=== PATIENT | male | born 1960 | race Caucasian/White ===

== ENCOUNTER 2018-12-08 18:25 | Observation (INO) | payer MEDICAID, OTHER ==
[~2018-12-08] VITALS: Ht 165.1 cm; Wt 66.7 kg
[~2018-12-08 18:25] MED LIST: metroNIDAZOLE 500 MG/100 ML IVPB (PRE-MIX) IV SCH
--- OUTSIDE RECORDS SUMMARY | 2018-12-08 18:31 | XMS REPORT ---
Author Author CLEOPATRA CARRASCO [facility] Address [address] [place] [address] Phone Unavailable Care Team Providers Care Engagement Manager Name Role Phone CLEOPATRA CARRASCO Unavailable Unavailable PROBLEMS Type Condition ICD9-CM Code ZSU75-PL Code Onset Dates Condition Status SNOMED Code Problem Hypercholesteremia E78.0 Active 32376559 Problem Right hip pain M25.551 Active 776074208640784 Problem Hypertriglyceridemia E78.1 Active 257404066 Problem HTN (hypertension) I10 Active 33175401 Problem COPD (chronic obstructive pulmonary disease) J44.9 Active 96927623 Problem Other chronic pain G89.29 Active 09240755 Problem Lumbago M54.5 Active 809340145 ALLERGIES No Information ENCOUNTERS Encounter Location Date Diagnosis [facility] [address] [id number] Nov, Dental examination Z01.20 [facility] [id number] [place] [id number] Nov, Dental examination Z01.20 [facility] [id number] [place] [address] Nov, Lumbar neuritis M54.16 and Right hip pain M25.551 [facility] [id number] [place] [address] October, Lumbar neuritis M54.16 and Hypertriglyceridemia E78.1 [facility] [id number] [place] [address] October, Lumbar neuritis M54.16 ; Pain in unspecified hip M25.559 ; Other chronic pain G89.29 ; HTN (hypertension) I10 ; Hypercholesteremia E78.0 and COPD (chronic obstructive pulmonary disease) J44.9 [facility] [id number] [place] [address] Feb, [facility] [address] [address] Jan, [facility] [address], [place] [address] Jan, [facility] [address], [place] [address] Dec, HTN (hypertension) I10 ; Lumbago M54.5 ; Hypercholesteremia E78.0 and COPD (chronic obstructive pulmonary disease) J44.9 [facility] [address], [place] [address] Nov, Lumbago M54.5 [facility] [address], [place] [address] October, Lumbago M54.5 [facility] [id number] [address] Sep, [facility] [address], [place] [address] Aug, Lumbago M54.5 ; HTN (hypertension) I10 ; Hypercholesteremia E78.0 and COPD (chronic obstructive pulmonary disease) J44.9 [facility] [address], [place] [address] Jul, [facility] [address], [place] [address] Jun, [facility] [id number] [address] May, HTN (hypertension) I10 ; Hypercholesteremia E78.0 ; Lumbago M54.5 and COPD (chronic obstructive pulmonary disease) J44.9 [facility] [address], [place] [address] May, [facility] [id number] [place] [address] [place] [address] May, [facility] [address] [facility] [id number] [address] May, HTN (hypertension) I10 ; Hypercholesteremia E78.0 ; Lumbago M54.5 and COPD (chronic obstructive pulmonary disease) J44.9 IMMUNIZATIONS No Known Immunizations SOCIAL HISTORY Never Assessed REASON FOR VISIT Adult Outreach [facility] PLAN OF CARE Activity Details Follow Up prn Reason:consult/reline or new FUD VITAL SIGNS MEDICATIONS Medication Instructions Dosage Frequency Start Date End Date Duration Status Tramadol HCl 50MG 1 tablet as needed 8h Not-Taking ProAir HFA 108 (90 Base) MCG/ACT Inhalation every 4 hrs 2 puffs as needed 4h May, Not-Taking Gabapentin 300 MG Orally Three times a day 1 capsule 8h 16 May, 2015 Active Lisinopril 40 mg Orally Once a day 1 tablet 24h May, Active Naproxen 500 mg Orally Twice a day 1 tablet 12h Nov, Dec, 30 day(s) Active Simvastatin 40 MG Orally Once a day 1 tablet in the evening 24h May, Active RESULTS No Results PROCEDURES Procedure Date Ordered Result Body Site SCREENING OF A PATIENT December 01, 2017 Billing Notes on claim December 01, 2017 INSTRUCTIONS MEDICATIONS ADMINISTERED No Known Medications MEDICAL (GENERAL) HISTORY Type Description Date Medical History hypertension Medical History chronic back and leg pain Medical History hyperlipidemia Medical History COPD Medical History Patient in treatment at [facility] ej Surgical History tonsillectomy Hospitalization History surgery
--- OUTSIDE RECORDS SUMMARY | 2018-12-08 18:31 | XMS REPORT ---
Author Author LEO WOODRUFF [facility] Address Unknown Care Team Providers Care Table Top Tile Setter Name Role Phone LEO WOODRUFF Unavailable PROBLEMS Type Condition ICD9-CM Code HRK08-NM Code Onset Dates Condition Status SNOMED Code Problem Hypercholesteremia E78.0 Active 36902915 Problem Right hip pain M25.551 Active 671928960873806 Problem Hypertriglyceridemia E78.1 Active 137838720 Problem HTN (hypertension) I10 Active 46881145 Problem COPD (chronic obstructive pulmonary disease) J44.9 Active 29665065 Problem Other chronic pain G89.29 Active 67743455 Problem Lumbago M54.5 Active 620753226 ALLERGIES No Known Allergies ENCOUNTERS Encounter Location Date Diagnosis [facility] [id number] [place] [id number] Nov, Dental examination Z01.20 [facility] [address] [id number] Nov, Dental examination Z01.20 [facility] [id number] [place] [address] Nov, Lumbar neuritis M54.16 and Right hip pain M25.551 [facility] [id number] [place] [address] October, Lumbar neuritis M54.16 and Hypertriglyceridemia E78.1 [facility] [address] [address] October, Lumbar neuritis M54.16 ; Pain in unspecified hip M25.559 ; Other chronic pain G89.29 ; HTN (hypertension) I10 ; Hypercholesteremia E78.0 and COPD (chronic obstructive pulmonary disease) J44.9 [facility] [id number] [place] [address] Feb, [facility] [address], [place] [address] Jan, [facility] [address], [place] [address] Jan, [facility] [address] [address] Dec, HTN (hypertension) I10 ; Lumbago M54.5 ; Hypercholesteremia E78.0 and COPD (chronic obstructive pulmonary disease) J44.9 [facility] [address], [place] [address] Nov, Lumbago M54.5 [facility] [address], [place] [address] October, Lumbago M54.5 [facility] [address], [place] [address] Sep, [facility] [address] [address] Aug, Lumbago M54.5 ; HTN (hypertension) I10 ; Hypercholesteremia E78.0 and COPD (chronic obstructive pulmonary disease) J44.9 [facility] [address], [place] [address] Jul, [facility] [address], [place] [address] Jun, [facility] [id number] [address] May, HTN (hypertension) I10 ; Hypercholesteremia E78.0 ; Lumbago M54.5 and COPD (chronic obstructive pulmonary disease) J44.9 [facility] [address], [place] [address] May, [facility] [id number] [address] May, [facility] [address] [facility] [id number] [address] May, HTN (hypertension) I10 ; Hypercholesteremia E78.0 ; Lumbago M54.5 and COPD (chronic obstructive pulmonary disease) J44.9 IMMUNIZATIONS No Known Immunizations SOCIAL HISTORY Never Assessed REASON FOR VISIT [facility] PLAN OF CARE Activity Details Follow Up prn Reason:MARSHAL VITAL SIGNS MEDICATIONS Medication Instructions Dosage Frequency Start Date End Date Duration Status Lisinopril 40 mg Orally Once a day 1 tablet 24h May, Active Tramadol HCl 50MG 1 tablet as needed 8h Not-Taking Simvastatin 40 MG Orally Once a day 1 tablet in the evening 24h May, Active Gabapentin 300 MG Orally Three times a day 1 capsule 8h May, Active ProAir HFA 108 (90 Base) MCG/ACT Inhalation every 4 hrs 2 puffs as needed 4h May, Not-Taking Naproxen 500 mg Orally Twice a day 1 tablet 12h Nov, Dec, 30 day(s) Active RESULTS No Results PROCEDURES Procedure Date Ordered Result Body Site PANORAMIC FILM SEE ALSO CODE 15078 December 03, 2017 TISSUE CONDITIONING MAXILLARY December 03, 2017 Billing Notes on claim December 03, 2017 Dental no charge December 03, 2017 INSTRUCTIONS MEDICATIONS ADMINISTERED No Known Medications MEDICAL (GENERAL) HISTORY Type Description Date Medical History hypertension Medical History chronic back and leg pain Medical History hyperlipidemia Medical History COPD Medical History Patient in treatment at [facility] [place] [facility] Surgical History tonsillectomy Hospitalization History surgery
--- OUTSIDE RECORDS SUMMARY | 2018-12-08 18:31 | XMS REPORT ---
Author Author RUBI BARFIELD Organization [facility] Address [address] [place] [address] Care Team Providers Care Collet Making Machine Operator Name Role Phone RUBI BARFIELD Unavailable PROBLEMS Type Condition ICD9-CM Code HSC32-CN Code Onset Dates Condition Status SNOMED Code Problem Hypercholesteremia E78.0 Active 77249753 Problem Right hip pain M25.551 Active 367360791276131 Problem Hypertriglyceridemia E78.1 Active 675754375 Problem HTN (hypertension) I10 Active 23816112 Problem COPD (chronic obstructive pulmonary disease) J44.9 Active 58558882 Problem Other chronic pain G89.29 Active 01382452 Problem Lumbago M54.5 Active 312930486 ALLERGIES No Information ENCOUNTERS Encounter Location Date Diagnosis [facility] [id number] [place] [id number] Nov, Dental examination Z01.20 [facility] [address] [id number] Nov, Dental examination Z01.20 [facility] [id number] [place] [address] Nov, Lumbar neuritis M54.16 and Right hip pain M25.551 [facility] [id number] [place] [address] October, Lumbar neuritis M54.16 and Hypertriglyceridemia E78.1 [facility] [address] [address] October, Lumbar neuritis M54.16 ; Pain in unspecified hip M25.559 ; Other chronic pain G89.29 ; HTN (hypertension) I10 ; Hypercholesteremia E78.0 and COPD (chronic obstructive pulmonary disease) J44.9 [facility] [id number] [address] Feb, [facility] [address], [place] [address] Jan, [facility] [address], [place] [address] Jan, [facility] [id number] [place] [address] Dec, HTN (hypertension) I10 ; Lumbago M54.5 ; Hypercholesteremia E78.0 and COPD (chronic obstructive pulmonary disease) J44.9 [facility] [id number] [place] [address] Nov, Lumbago M54.5 [facility] [address], [place] [address] October, Lumbago M54.5 [facility] [address], [place] [address] Sep, [facility] [address], [place] [address] Aug, Lumbago M54.5 ; HTN (hypertension) I10 ; Hypercholesteremia E78.0 and COPD (chronic obstructive pulmonary disease) J44.9 [facility] [address], [place] [address] Jul, [facility] [address], [place] [address] Jun, [facility] [address], [place] [address] May, HTN (hypertension) I10 ; Hypercholesteremia E78.0 ; Lumbago M54.5 and COPD (chronic obstructive pulmonary disease) J44.9 [facility] [address], [place] [address] May, [facility] [address] [facility] [id number] [place] [address] May, [facility] [address] [facility] [id number] [address] May, HTN (hypertension) I10 ; Hypercholesteremia E78.0 ; Lumbago M54.5 and COPD (chronic obstructive pulmonary disease) J44.9 IMMUNIZATIONS No Known Immunizations SOCIAL HISTORY Never Assessed REASON FOR VISIT Lab results PLAN OF CARE VITAL SIGNS MEDICATIONS Medication Instructions Dosage Frequency Start Date End Date Duration Status Simvastatin 40 MG Orally Once a day 1 tablet in the evening 24h 30 May, 2015 Active RESULTS No Results PROCEDURES No Known procedures INSTRUCTIONS MEDICATIONS ADMINISTERED No Known Medications MEDICAL (GENERAL) HISTORY Type Description Date Medical History hypertension Medical History chronic back and leg pain Medical History hyperlipidemia Medical History COPD Medical History Patient in treatment at [facility] [facility] Surgical History tonsillectomy Hospitalization History surgery
--- OUTSIDE RECORDS SUMMARY | 2018-12-08 18:31 | XMS REPORT ---
Author RJ Arenas [facility] eClinicalWorks Address Unknown Phone Unavailable Care Team Providers Care Stacker Name Role Phone RJ MADDEN CP Unavailable Allergies, Adverse Reactions, Alerts Substance Reaction Event Type N.K.D.A. Info Not Available Non Drug Allergy Problems Problem Type Condition Code Onset Dates Condition Status Assessment COPD (chronic obstructive pulmonary disease) J44.9 Active Problem Hypercholesteremia E78.0 Active Problem Lumbago M54.5 Active Problem HTN (hypertension) I10 Active Assessment Hypercholesteremia E78.0 Active Assessment Lumbago M54.5 Active Problem COPD (chronic obstructive pulmonary disease) J44.9 Active Assessment HTN (hypertension) I10 Active Medications Medication Code System Code Instructions Start Date End Date Status Dosage Simvastatin [facility] [address]-30 20 MG Orally Once a day Jun 06, 2015 1 tablet in the evening ProAir HFA [facility] [address]-21 108 (90 Base) MCG/ACT Inhalation every 4 hrs Jun 06, 2015 2 puffs as needed Lisinopril [facility] [address]-75 40 MG Orally Once a day Jun 06, 2015 1 tablet Gabapentin [facility] [address]-31 300 MG Orally 2 times a day May 23, 2015 1 capsule Procedures Procedure Coding System Code Date Office Visit, Est Pt., Level 3 CPT-4 63378 Jun 06, 2015 Vital Signs Date/Time: Jun 06, 2015 Temperature 97.8 F Weight 156.6 lbs Height 66 in BMI 25.27 Index Blood Pressure Diastolic 108 mmHg Blood Pressure Systolic 184 mmHg Cardiac Monitoring Heart Rate 100 bpm Results No Known Results Summary Purpose eClinicalWorks Submission
--- OUTSIDE RECORDS SUMMARY | 2018-12-08 18:31 | XMS REPORT ---
Author Author HARRY FALL [facility] Address [address] [place] [address] Care Team Providers Care Director Career Services Name Role Phone HARRY FALL Unavailable PROBLEMS Type Condition ICD9-CM Code LPH04-LK Code Onset Dates Condition Status SNOMED Code Problem Hypercholesteremia E78.0 Active 61792501 Problem Right hip pain M25.551 Active 398294823659747 Problem Hypertriglyceridemia E78.1 Active 384262087 Problem HTN (hypertension) I10 Active 53075065 Problem COPD (chronic obstructive pulmonary disease) J44.9 Active 70122626 Problem Other chronic pain G89.29 Active 35167995 Problem Lumbago M54.5 Active 769859520 ALLERGIES No Known Allergies ENCOUNTERS Encounter Location Date Diagnosis [facility] [address] [id number] Nov, Dental examination Z01.20 [facility] [address] [id number] Nov, Dental examination Z01.20 [facility] [address] [address] Nov, Lumbar neuritis M54.16 and Right hip pain M25.551 [facility] [address] [address] October, Lumbar neuritis M54.16 and Hypertriglyceridemia E78.1 [facility] [address] [address] October, Lumbar neuritis M54.16 ; Pain in unspecified hip M25.559 ; Other chronic pain G89.29 ; HTN (hypertension) I10 ; Hypercholesteremia E78.0 and COPD (chronic obstructive pulmonary disease) J44.9 [facility] [address] [address] Feb, [facility] [id number] [place] [address] Jan, [facility] [address] [address] Jan, [facility] [id number] [place] [address] Dec, HTN (hypertension) I10 ; Lumbago M54.5 ; Hypercholesteremia E78.0 and COPD (chronic obstructive pulmonary disease) J44.9 [facility] [id number] [place] [address] Nov, Lumbago M54.5 [facility] [address] [address] October, Lumbago M54.5 [facility] [address] [address] Sep, [facility] [address] [place] [address] Aug, Lumbago M54.5 ; HTN (hypertension) I10 ; Hypercholesteremia E78.0 and COPD (chronic obstructive pulmonary disease) J44.9 [facility] [address] [address] Jul, [facility] [address] [address] Jun, [facility] [address] [place] [address] May, HTN (hypertension) I10 ; Hypercholesteremia E78.0 ; Lumbago M54.5 and COPD (chronic obstructive pulmonary disease) J44.9 [facility] [address] [address] May, [facility] [address] [facility] [id number] [place] [address] May, [facility] [address] [facility] [id number] [address] May, HTN (hypertension) I10 ; Hypercholesteremia E78.0 ; Lumbago M54.5 and COPD (chronic obstructive pulmonary disease) J44.9 IMMUNIZATIONS No Known Immunizations SOCIAL HISTORY Never Assessed REASON FOR VISIT Hip Pain, pain in both legs has pain in lower back-HENRRY bermudez, pt. wants a refer ral to ortho at [facility] PLAN OF CARE Activity Details Follow Up prn Reason: VITAL SIGNS Height 66 in 2017-11-30 Weight 170.6 lbs 2017-11-30 Temperature 98.2 degrees Fahrenheit 2017-11-30 Heart Rate 80 bpm 2017-11-30 Respiratory Rate 20 2017-11-30 BMI 27.53 kg/m2 2017-11-30 Blood pressure systolic 160 mmHg 2017-11-30 Blood pressure diastolic 102 mmHg 2017-11-30 MEDICATIONS Medication Instructions Dosage Frequency Start Date End Date Duration Status Gabapentin 300 MG Orally Three times a day 1 capsule 8h May, Active Simvastatin 40 MG Orally Once a day 1 tablet in the evening 24h May, Active Lisinopril 40 mg Orally Once a day 1 tablet 24h May, Active Tramadol HCl 50MG 1 tablet as needed 8h Not-Taking ProAir HFA 108 (90 Base) MCG/ACT Inhalation every 4 hrs 2 puffs as needed 4h May, Active Naproxen 500 mg Orally Twice a day 1 tablet 12h Nov, Dec, 30 day(s) Active RESULTS No Results PROCEDURES No Known procedures INSTRUCTIONS MEDICATIONS ADMINISTERED No Known Medications MEDICAL (GENERAL) HISTORY Type Description Date Medical History hypertension Medical History chronic back and leg pain Medical History hyperlipidemia Medical History COPD Medical History Patient in treatment at [facility] Surgical History tonsillectomy Hospitalization History surgery
--- OUTSIDE RECORDS SUMMARY | 2018-12-08 18:31 | XMS REPORT ---
Author RJ Arenas [facility] eClinicalWorks Address Unknown Phone Unavailable Care Team Providers Care Claims Configuration Analyst Name Role Phone RJ MADDEN Unavailable Allergies No Known Allergies Problems Problem Type Condition Code Onset Dates Condition Status Problem Hypercholesteremia E78.0 Active Problem Lumbago M54.5 Active Problem HTN (hypertension) I10 Active Problem COPD (chronic obstructive pulmonary disease) J44.9 Active Medications Medication Code System Code Instructions Start Date End Date Status Dosage Pravastatin [facility] 2001 [address]-71 10 MG Orally Once a day May 24, 2015 1 tablet Results No Known Results Summary Purpose eClinicalWorks Submission
--- OUTSIDE RECORDS SUMMARY | 2018-12-08 18:31 | XMS REPORT ---
Author Author RUBI BARFIELD Organization [facility] Address [address] [place] [address] Care Team Providers Care Windows Application Developer Name Role Phone RUBI BARFIELD Unavailable PROBLEMS Type Condition ICD9-CM Code BZC80-HG Code Onset Dates Condition Status SNOMED Code Problem Hypercholesteremia E78.0 Active 90002891 Problem Right hip pain M25.551 Active 633013089389305 Problem Hypertriglyceridemia E78.1 Active 207627219 Problem HTN (hypertension) I10 Active 57535195 Problem COPD (chronic obstructive pulmonary disease) J44.9 Active 50209581 Problem Other chronic pain G89.29 Active 84436539 Problem Lumbago M54.5 Active 149689142 ALLERGIES No Known Allergies ENCOUNTERS Encounter Location Date Diagnosis [facility] [address] [id number] Nov, Dental examination Z01.20 [facility] [address] [id number] Nov, Dental examination Z01.20 [facility] [address] [address] Nov, Lumbar neuritis M54.16 and Right hip pain M25.551 [facility] [id number] [place] [address] October, Lumbar neuritis M54.16 and Hypertriglyceridemia E78.1 [facility] [address] [address] October, Lumbar neuritis M54.16 ; Pain in unspecified hip M25.559 ; Other chronic pain G89.29 ; HTN (hypertension) I10 ; Hypercholesteremia E78.0 and COPD (chronic obstructive pulmonary disease) J44.9 [facility] [address], [place] [address] Feb, [facility] [address], [place] [address] Jan, [facility] [address], [place] [address] Jan, [facility] [id number] [place] [address] Dec, HTN (hypertension) I10 ; Lumbago M54.5 ; Hypercholesteremia E78.0 and COPD (chronic obstructive pulmonary disease) J44.9 [facility] [id number] [place] [address] Nov, Lumbago M54.5 [facility] [address], [place] [address] October, Lumbago M54.5 [facility] [address], [place] [address] Sep, [facility] [address], [place] [address] Aug, Lumbago M54.5 ; HTN (hypertension) I10 ; Hypercholesteremia E78.0 and COPD (chronic obstructive pulmonary disease) J44.9 [facility] [address], [place] [address] Jul, [facility] [address] [place] [address] Jun, [facility] [address] [place] [address] May, HTN (hypertension) I10 ; Hypercholesteremia E78.0 ; Lumbago M54.5 and COPD (chronic obstructive pulmonary disease) J44.9 [facility] [address] [place] [address] May, [facility] [address] [facility] [id number] [place] [address] May, [facility] [address] [facility] [id number] [address] May, HTN (hypertension) I10 ; Hypercholesteremia E78.0 ; Lumbago M54.5 and COPD (chronic obstructive pulmonary disease) J44.9 IMMUNIZATIONS No Known Immunizations SOCIAL HISTORY Never Assessed REASON FOR VISIT Transition of Care, Back and Hip pain PLAN OF CARE VITAL SIGNS Height 66 in 2017-10-22 Weight 161.5 lbs 2017-10-22 Temperature 99 degrees Fahrenheit 2017-10-22 Heart Rate 100 bpm 2017-10-22 Respiratory Rate 18 2017-10-22 Oximetry on room air:98 % 2017-10-22 BMI 26.06 kg/m2 2017-10-22 Blood pressure systolic 160 mmHg 2017-10-22 Blood pressure diastolic 98 mmHg 2017-10-22 MEDICATIONS Medication Instructions Dosage Frequency Start Date End Date Duration Status Tramadol HCl 50MG 1 tablet as needed 8h Active Simvastatin 20 mg Orally Once a day 1 tablet in the evening 24h May, Active Lisinopril 40 mg Orally Once a day 1 tablet 24h May, Active Gabapentin 300 MG Orally Three times a day 1 capsule 8h May, Active Nabumetone 750 MG Orally Twice a day 1 tablet 12h Aug, Active ProAir HFA 108 (90 Base) MCG/ACT Inhalation every 4 hrs 2 puffs as needed 4h May, Active RESULTS No Results PROCEDURES Procedure Date Ordered Result Body Site LAB NOT BILLED BY [facility] October 22, 2017 RENETTA REYNOLDS* October 22, 2017 INSTRUCTIONS MEDICATIONS ADMINISTERED No Known Medications MEDICAL (GENERAL) HISTORY Type Description Date Medical History hypertension Medical History chronic back and leg pain Medical History hyperlipidemia Medical History COPD Medical History Patient in treatment at [facility] Surgical History tonsillectomy Hospitalization History surgery
--- OUTSIDE RECORDS SUMMARY | 2018-12-08 18:32 | XMS REPORT ---
Author RJ Arenas [facility] eClinicalWorks Address Unknown Phone Unavailable Care Team Providers Care Typing Element Machine Operator Name Role Phone RJ MADDEN CP Unavailable Allergies No Known Allergies Problems Problem Type Condition Code Onset Dates Condition Status Problem Hypercholesteremia E78.0 Active Problem Lumbago M54.5 Active Problem HTN (hypertension) I10 Active Problem COPD (chronic obstructive pulmonary disease) J44.9 Active Medications Medication Code System Code Instructions Start Date End Date Status Dosage [facility] [address]-98 50 mg Orally 2 times a day prn August 20, 2015 1 tablet as needed Results No Known Results Summary Purpose eClinicalWorks Submission
--- OUTSIDE RECORDS SUMMARY | 2018-12-08 18:32 | XMS REPORT ---
Author RJ Arenas Organization [employer] Address Unknown Phone Unavailable Care Team Providers Care Associate Business Analyst Name Role Phone RJ MADDEN CP Unavailable Allergies No Known Allergies Problems Problem Type Condition Code Onset Dates Condition Status Problem Hypercholesteremia E78.0 Active Problem Lumbago M54.5 Active Problem HTN (hypertension) I10 Active Problem COPD (chronic obstructive pulmonary disease) J44.9 Active Medications No Known Medications Results No Known Results Summary Purpose eClinicalWorks Submission
--- OUTSIDE RECORDS SUMMARY | 2018-12-08 18:32 | XMS REPORT ---
Author RJ Arenas Organization [employer] Address Unknown Phone Unavailable Care Team Providers Care Director Of Infection Control Name Role Phone RJ MADDEN CP Unavailable Allergies No Known Allergies Problems Problem Type Condition Code Onset Dates Condition Status Problem Hypercholesteremia E78.0 Active Problem Lumbago M54.5 Active Problem HTN (hypertension) I10 Active Problem COPD (chronic obstructive pulmonary disease) J44.9 Active Medications No Known Medications Results No Known Results Summary Purpose eClinicalWorks Submission
--- OUTSIDE RECORDS SUMMARY | 2018-12-08 18:32 | XMS REPORT ---
Author RJ Arenas Organization e[employer] Address Unknown Phone Unavailable Care Team Providers Care Home Appliance Technician Name Role Phone RJ MADDEN CP Unavailable Allergies No Known Allergies Problems Problem Type Condition Code Onset Dates Condition Status Problem Hypercholesteremia E78.0 Active Problem Lumbago M54.5 Active Problem HTN (hypertension) I10 Active Problem COPD (chronic obstructive pulmonary disease) J44.9 Active Medications No Known Medications Results No Known Results Summary Purpose eClinicalWorks Submission
--- OUTSIDE RECORDS SUMMARY | 2018-12-08 18:32 | XMS REPORT ---
Author Author RJ MADDEN [facility] eClinicalWorks Address Unknown Phone Unavailable Care Team Providers Care Dental Floss Packer Name Role Phone RJ MADDEN CP Unavailable [...] Instructions Start Date End Date Status Dosage Gabapentin [facility] [address]-59 300 MG Orally 2 times a day May 23, 2015 1 capsule Ventolin HFA [facility] [address]-67 108 (90 Base) MCG/ACT Inhalation every 4 hrs prn May 23, 2015 2 puffs as needed Lisinopril [facility] [address]-84 20 MG Orally once a day May 23, 2015 1 tablet Procedures Procedure Coding System Code Date LIPID PANEL CPT-4 47055 May 23, 2015 X-RAY EXAM OF LOWER SPINE CPT-4 34303 May 23, 2015 COMPLETE CBC W/AUTO DIFF WBC CPT-4 88202 May 23, 2015 COMPREHEN METABOLIC PANEL CPT-4 66501 May 23, 2015 Office Visit, New Pt., Level 4 CPT-4 84494 May 23, 2015 VENIPUNCT, ROUTINE* CPT-4 00743 May 23, 2015 Vital Signs Date/Time: May 23, 2015 Temperature 97.9 F Weight 157.2 lbs Height 66 in BMI 25.37 Index Blood Pressure Diastolic 102 mmHg Blood Pressure Systolic 208 mmHg Cardiac Monitoring Heart Rate 96 bpm Results Name Result Date Reference Range Unit Abnormality Flag LIPID PANEL ----HDL Cholesterol 39 20150523 >39 mg/dL L ----VLDL Cholesterol Toney 51 11441502 5-40 mg/dL H ----LDL Cholesterol Calc 164 43285862 0-99 mg/dL H ----Cholesterol, Total 254 56290005 100-199 mg/dL H ----Triglycerides 257 62770065 0-149 mg/dL H CMP ----Globulin, Total 3.7 87116971 1.5-4.5 g/dL ----eGFR If Africn Am 108 00955848 >59 mL/min/1.73 ----eGFR If NonAfricn Am 93 43129937 >59 mL/min/1.73 ----Albumin, Serum 4.8 33193118 3.5-5.5 g/dL ----Sodium, Serum 139 83386017 134-144 mmol/L ----Protein, Total, Serum 8.5 55707997 6.0-8.5 g/dL ----BUN/Creatinine Ratio 10 75073203 9-20 ----Calcium, Serum 9.5 39316378 8.7-10.2 mg/dL ----AST (SGOT) 33 28837244 0-40 IU/L ----Glucose, Serum 90 56283105 65-99 mg/dL ----Alkaline Phosphatase, S 117 10793280 39-117 IU/L ----Bilirubin, Total 0.6 57597025 0.0-1.2 mg/dL ----Creatinine, Serum 0.92 49992421 0.76-1.27 mg/dL ----A/G Ratio 1.3 20150523 1.1-2.5 ----BUN 9 20150523 6-24 mg/dL ----Carbon Dioxide, Total 24 88113864 18-29 mmol/L ----ALT (SGPT) 72 20399562 0-44 IU/L H ----Potassium, Serum 4.3 29886439 3.5-5.2 mmol/L ----Chloride, Serum 100 42773156 97-108 mmol/L ROUTINE VENIPUNCTURE CBC ----MCHC 33.9 21113630 31.5-35.7 g/dL ----MCH 31.4 26923086 26.6-33.0 pg ----Platelets 225 27563161 150-379 x10E3/uL ----RDW 12.8 82184897 12.3-15.4 % ----Immature Granulocytes 0 72760245 % ----Immature Grans (Abs) 0.0 15882127 0.0-0.1 x10E3/uL ----Lymphs 33 16866805 % ----Monocytes 7 27538221 % ----Neutrophils 58 68534264 % ----Neutrophils (Absolute) 5.6 57811977 1.4-7.0 x10E3/uL ----Hematocrit 50.7 53342251 37.5-51.0 % ----Lymphs (Absolute) 3.2 26660653 0.7-3.1 x10E3/uL H ----MCV 93 37556184 79-97 fL ----RBC 5.48 13669656 4.14-5.80 x10E6/uL ----Eos 2 31030673 % ----Basos 0 22204983 % ----Hemoglobin 17.2 71430204 12.6-17.7 g/dL ----Baso (Absolute) 0.0 63503856 0.0-0.2 x10E3/uL ----WBC 9.7 46907206 3.4-10.8 x10E3/uL ----Monocytes(Absolute) 0.7 61099631 0.1-0.9 x10E3/uL ----Eos (Absolute) 0.2 24754461 0.0-0.4 x10E3/uL Summary Purpose eClinicalWorks Submission
--- OUTSIDE RECORDS SUMMARY | 2018-12-08 18:32 | XMS REPORT | Continuity of Care Document ---
Author Organization Unknown Address Unknown Allergies There is no data. Medications There is no data. Problems There is no data. Procedures There is no data. Results Test Result Range LIPID PANEL - 10/22/17 11:34 CHOLESTEROL, TOTAL 201 mg/dL <200 HDL CHOLESTEROL 37 mg/dL >40 TRIGLYCERIDES 309 mg/dL <150 LDL-CHOLESTEROL 120 mg/dL (calc) NRG CHOL/HDLC RATIO 5.4 (calc) <5.0 NON HDL CHOLESTEROL 164 mg/dL (calc) <130 Encounters ACCT No. Visit Date/Time Discharge Status Pt. Type Provider Facility Loc./Unit Complaint [id number] 10/17/2015 09:46:00 10/17/2015 23:59:59 CLS Outpatient BIRGIT BARRY MD (DDU) [facility] RT [id number] 10/11/2015 10:00:00 10/11/2015 23:59:59 CLS Preadmit Birgit Barry MD [facility] KCUL COPD [id number] 12/03/2017 14:00:00 12/03/2017 23:59:59 CLS Outpatient RUBI BARFIELD APRN [facility] [id number] 10/22/2017 11:00:00 Document Registration
[2018-12-08] MEDS ORDERED: ONDANSETRON 4 MG/2 ML (SDV) Z0FRAN IVP STA (18:38)
[2018-12-08] MEDS ORDERED: fentaNYL INJECTION 100 MCG/2 ML AMP IVP STA (18:38)
[2018-12-08] MEDS ORDERED: PANTOPRAZOLE 40 MG (PROTONIX) VIAL IV STA (18:39)
--- NOTE | 2018-12-08 18:42 | ED Abdominal Pain ---
General Chief Complaint: Abdominal/GI Problems Stated Complaint: ABD PAIN Nursing Triage Note: Has abdominal pain that started approximately 1 hour ago accompanied by nausea. Is currently rating pain at 4/10. States has never had pain like this before. Denies urinary issues or constipation. Is tender to palpation. Sepsis Screen: No Definite Risk Source of Information: Patient, EMS History of Present Illness Date Seen by Provider: Dec 08, 2018 Time Seen by Provider: 18:30 Initial Comments 58-year-old male presenting with complaints of abdominal pain with nausea. He states that this came on suddenly for him and is diffuse. It is worse in the epigastric and periumbilical area. He has pain that comes and goes in intensity. He feels that is worse with certain movements and with palpation. He denies any fever or chills. He did have similar pain a year ago with infectious colitis. He has had no change in his bowel or bladder habits. he denies eating anything differently. He has had nausea with dry heaves. Allergies and Home Medications Allergies Coded Allergies: No Known Drug Allergies (Unverified , 12/08/18) Home Medications Albuterol Sulfate 6.7 Gm Hfa.aer.ad, 2 PUFF INH Q4H PRN for WHEEZING, (Reported) Amlodipine Besylate 10 Mg Tablet, 10 MG PO DAILY, (Reported) Ciprofloxacin/Ciprofloxa HCl 500 Mg Tbmp.24hr, 500 MG PO BID Prescribed by: RENETTA LAM on 12/09/18 114 Diclofenac Sodium 75 Mg Tablet.dr, 75 MG PO BID, (Reported) Hydrocodone Bit/Acetaminophen 1 Ea Tablet, 1 EACH PO Q4H PRN for PAIN-MODERATE Prescribed by: RENETTA LAM on 12/09/18 1142 Lovastatin 20 Mg Tablet, 20 MG PO DAILY, (Reported) Metoprolol Succinate 25 Mg Tab.er.24h, 25 MG PO DAILY, (Reported) Metronidazole 500 Mg Tablet, 500 MG PO BID Prescribed by: RENETTA LAM on 12/09/18 1142 Quetiapine Fumarate 25 Mg Tablet, 1-2 TAB PO HS, (Reported) Patient Home Medication List Home Medication List Reviewed: Yes Review of Systems Review of Systems Constitutional: see HPI; No chills, No fever EENTM: No Symptoms Reported Respiratory: No Symptoms Reported Cardiovascular: No Symptoms Reported Gastrointestinal: See HPI; Denies Constipated, Denies Diarrhea Genitourinary: Denies Hematuria, Denies Pain, Denies Urgency Musculoskeletal: no symptoms reported Skin: no symptoms reported Psychiatric/Neurological: Denies Headache, Denies Numbness Past Ryntsht-Ttqaqk-Bspzkm Hx Past Med/Social Hx: Reviewed Nursing Past Med/Soc Hx Patient Social History Alcohol Use: Denies Use Recreational Drug Use: No Smoking Status: Current Someday Smoker 2nd Hand Smoke Exposure: Yes Recent Foreign Travel: No Contact w/Someone Who Travel: No Recent Infectious Disease Expo: No Recent Hopitalizations: No Physical Abuse: No Sexual Abuse: No Mistreated: No Fear: No Seasonal Allergies Seasonal Allergies: No Past Medical History Surgeries: No Respiratory: Yes COPD Cardiac: Yes Hypertension Neurological: No Genitourinary: Yes Prostate Problems Gastrointestinal: No Musculoskeletal: No Endocrine: No HEENT: No Cancer: No Psychosocial: No Integumentary: No Blood Disorders: No Physical Exam Vital Signs Vital Signs - First Documented 12/08/18 18:31 Temp 98.0 Pulse 97 Resp 18 B/P (MAP) 104/86 (92) Pulse Ox 99 Capillary Refill : Less Than 3 Seconds Height/Weight/BMI Height: 5'5.00" Weight: 140lbs. oz. 63.079478ci; BMI Method:Stated General Appearance: WD/WN, moderate distress (complaining of severe abdominal - pain) HEENT: PERRL/EOMI, pharynx normal Neck: supple, normal inspection Respiratory: chest non-tender, lungs clear, normal breath sounds Cardiovascular: normal peripheral pulses, regular rate, rhythm Gastrointestinal: soft, no pulsatile mass, abnormal bowel sounds (hypoactive), guarding; No rebound; tenderness (diffusely tender to palpation); No mass Rectal: deferred Extremities: normal range of motion, non-tender Back: normal inspection, no CVA tenderness Neurologic/Psychiatric: alert, oriented x 3 Skin: normal color, warm/dry Progress/Results/Core Measures Results/Orders Lab Results Laboratory Tests Test 12/08/18 18:35 Range/Units White Blood Count 13.3 H 4.3-11.0 10^3/uL Red Blood Count 4.68 4.35-5.85 10^6/uL Hemoglobin 14.5 13.3-17.7 G/DL Hematocrit 43 40-54 % Mean Corpuscular Volume 91 80-99 FL Mean Corpuscular Hemoglobin 31 25-34 PG Mean Corpuscular Hemoglobin Concent 34 32-36 G/DL Red Cell Distribution Width 13.2 10.0-14.5 % Platelet Count 245 130-400 10^3/uL Mean Platelet Volume 10.1 7.4-10.4 FL Neutrophils (%) (Auto) 61 42-75 % Lymphocytes (%) (Auto) 27 12-44 % Monocytes (%) (Auto) 7 0-12 % Eosinophils (%) (Auto) 4 0-10 % Basophils (%) (Auto) 1 0-10 % Neutrophils # (Auto) 8.1 H 1.8-7.8 X 10^3 Lymphocytes # (Auto) 3.6 1.0-4.0 X 10^3 Monocytes # (Auto) 0.9 0.0-1.0 X 10^3 Eosinophils # (Auto) 0.6 H 0.0-0.3 10^3/uL Basophils # (Auto) 0.1 0.0-0.1 10^3/uL Sodium Level 138 135-145 MMOL/L Potassium Level 4.8 3.6-5.0 MMOL/L Chloride Level 103 98-107 MMOL/L Carbon Dioxide Level 20 L 21-32 MMOL/L Anion Gap 15 H 5-14 MMOL/L Blood Urea Nitrogen 32 H 7-18 MG/DL Creatinine 0.86 0.60-1.30 MG/DL Estimat Glomerular Filtration Rate > 60 BUN/Creatinine Ratio 37 Glucose Level 97 70-105 MG/DL Calcium Level 8.9 8.5-10.1 MG/DL Corrected Calcium 8.8 8.5-10.1 MG/DL Total Bilirubin 0.2 0.1-1.0 MG/DL Aspartate Amino Transf (AST/SGOT) 33 5-34 U/L Alanine Aminotransferase (ALT/SGPT) 69 H 0-55 U/L Alkaline Phosphatase 133 40-136 U/L Total Protein 7.7 6.4-8.2 GM/DL Albumin 4.1 3.2-4.5 GM/DL Lipase 70 8-78 U/L Serum Alcohol < 10 <10 MG/DL My Orders Orders - PRIYANKA JACKSON MD Comprehensive Metabolic Panel (12/08/18 18:38) Lipase (12/08/18 18:38) Ua Culture If Indicated (12/08/18 18:38) Ed Iv/Invasive Line Start (12/08/18 18:38) Cbc With Automated Diff (12/08/18 18:38) Ct Abdomen/Pelvis W (12/08/18 18:38) Ns Iv 1000 Ml (Sodium Chloride 0.9%) (12/08/18 18:45) Fentanyl Injection (Sublimaze Injection (12/08/18 18:38) Ondansetron Injection (Zofran Injectio (12/08/18 18:38) Drug Screen Stat (Urine) (12/08/18 18:39) Alcohol (12/08/18 18:39) Pantoprazole Injection (Protonix Injecti (12/08/18 18:39) Iohexol Injection (Omnipaque 350 Mg/Ml 1 (12/08/18 19:00) Received Contrast (Hold Metformin- Contr (12/08/18 19:00) Sodium Chloride Flush (Catheter Flush Sy (12/08/18 19:00) Ns (Ivpb) (Sodium Chloride 0.9% Ivpb Bag (12/08/18 19:00) Morphine Injection (Morphine Injection (12/08/18 19:04) Metoclopramide Injection (Reglan Injecti (12/08/18 19:06) Medications Given in ED Vital Signs/I&O 12/08/18 18:31 Temp 98.0 Pulse 97 Resp 18 B/P (MAP) 104/86 (92) Pulse Ox 99 12/09/18 00:00 Intake Total 1000 ml Balance 1000 ml Blood Pressure Mean: 92 Progress Progress Note #1: Progress Note with his complaint of severe abdominal pain and dry heaves as well has having difficulty getting comfortable will obtain labs and give IV fentanyl for pain, Zofran for nausea, IVF for hydration. Check CT scan of abdomen/pelvis with contrast to evaluate for colitis, diverticulitis, gallbladder, appendix or other pathology causing his symptoms. Progress Note #2: Progress Note pt was still intermittently crying out saying he was in pain so an additional dose of pain medicine was ordered and a dose of Reglan since he was still saying he was nauseated. Progress Note #3: Progress Note Labs show elevated WBC count to 13.3. Chemistry without significant abnormality to explain his pain. Lipase normal. CT scan does show findings for acute appendicitis without rupture or abscess. Will give Morphine to see if that does better than the fentanyl. IVF for hydration. Check with [facility] for bed availability and they do have a bed so paged Dr. Lam on for surgery and he accepted the patient. He requested Cipro and Flagyl for antibiotics and planned to do the surgery around 1030 am on December 09. Diagnostic Imaging Diagonstic Imaging: CT Plain Films/CT/US/NM/MRI: abdomen, pelvis Comments NAME: CLIFTON URBANO [facility] REC#: [id number] PT STATUS: REG ER : 1960 PHYSICIAN: PRIYANKA JACKSON MD ADMIT DATE: 12/08/18/ER FS Draft Date of Exam:12/08/18 CT ABDOMEN/PELVIS W PROCEDURE: CT abdomen and pelvis with contrast. TECHNIQUE: Multiple contiguous axial images were obtained through the abdomen and pelvis after administration of intravenous contrast. Auto Exposure Controls were utilized during the CT exam to meet ALARA standards for radiation dose reduction. INDICATION: Sudden onset of severe abdominal pain. No prior studies are available for comparison. Lung bases are clear. No discrete liver mass is seen apart from a tiny low density in the posterior right lobe measuring 7 mm. This is too small to characterize but may represent a cyst. There are stones within the gallbladder. No biliary duct dilatation is seen. The pancreas and spleen are unremarkable. No adrenal mass is seen. No definite renal calculi or hydronephrosis is seen. Aorta is heavily calcified but nonaneurysmal. Bowel loops are normal caliber. No obstruction is seen. There are inflammatory changes in the right lower quadrant. The appendix appears to be dilated and thick walled. The appendix extends towards the midline in the upper pelvis. There is periappendiceal inflammation and features are consistent with acute appendicitis. No abscess formation or bowel obstruction is seen. There is sigmoid diverticulosis without evidence of acute diverticulitis. No free fluid is seen. Bladder is unremarkable. 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 IMPRESSION: 1. Cholelithiasis. 2. Findings consistent with acute appendicitis. No abscess formation or bowel obstruction is seen. Dictated on workstation # [id number] Dict: 12/08/18 1944 Trans: 12/08/18 1950 HILARIO [id number] Interpreted by: JAYANT SNEED MD Electronically signed by: Departure Communication (Admissions) Time/Spoke to Admitting Phy: 20:38 Dr. Lam accepted pt for admit to him. He wanted antibiotics started and anticipated surgery in am at 1030 am by Lap Appy approach. Clear liquids until Midnight and then NPO. start on Cipro and Flagyl Impression Primary Impression: Acute appendicitis Qualified Codes: K35.30 - Acute appendicitis with localized peritonitis, without perforation or gangrene Disposition: ADMITTED INPATIENT Condition: Stable Admissions Decision to Admit Reason: Admit from ER (General) Decision to Admit/Date: Dec 08, 2018 Time/Decision to Admit Time: 20:38 Departure-Patient Inst. Referrals: NO,LOCAL PHYSICIAN (PCP/Family) Primary Care Physician Scripts Metronidazole (Flagyl) 500 Mg Tablet 500 MG PO BID, #14 TAB Prov: RENETTA LAM MD 12/09/18 Ciprofloxacin/Ciprofloxa HCl (Cipro Xr 500 mg Tablet) 500 Mg Tbmp.24hr 500 MG PO BID for 14 Days, EA Prov: RENETTA LAM MD 12/09/18 Hydrocodone Bit/Acetaminophen (LORTAB 7.5 MG TABLET) 1 Ea Tablet 1 EACH PO Q4H PRN for PAIN-MODERATE MDD 6, #35 TAB Prov: RENETTA LAM MD 12/09/18 PRIYANKA JACKSON MD Dec 08, 2018 18:42
[2018-12-08] MEDS ORDERED: NS IV 1000 ML 1,000 ML IV SCH (18:45)
[2018-12-08 18:47] LABS: HEMATOCRIT 43 % (40-54); HEMOGLOBIN 14.5 G/DL (13.3-17.7); LYMPHOCYTES % (AUTO) 27 % (12-44); MEAN CORPUSCULAR HEMOGLOBIN 31 PG (25-34); MEAN CORPUSCULAR HGB CONC 34 G/DL (32-36); MEAN CORPUSCULAR VOLUME 91 FL (80-99); MEAN PLATELET VOLUME 10.1 FL (7.4-10.4); NEUTROPHILS % (AUTO) 61 % (42-75); PLATELET COUNT 245 10^3/uL (130-400); RED CELL DISTRIBUTION WIDTH 13.2 % (10.0-14.5); WHITE BLOOD COUNT 13.3 10^3/uL (4.3-11.0)
[2018-12-08 18:48] LABS: BASOPHILS # (AUTO) 0.1 10^3/uL (0.0-0.1); BASOPHILS % (AUTO) 1 % (0-10); EOSINOPHILS # (AUTO) 0.6 10^3/uL (0.0-0.3); EOSINOPHILS % (AUTO) 4 % (0-10); LYMPHOCYTES # (AUTO) 3.6 X 10^3 (1.0-4.0); MONOCYTES # (AUTO) 0.9 X 10^3 (0.0-1.0); MONOCYTES % (AUTO) 7 % (0-12); NEUTROPHILS # (AUTO) 8.1 X 10^3 (1.8-7.8)
[2018-12-08] MEDS ORDERED: NS 100 ML (IVPB) BAG IV ONE (19:00)
[2018-12-08] MEDS ORDERED: IOHEXOL 350 MG/ML 100 ML (OMNIPAQUE 350) VIAL IV ONE (19:00)
[2018-12-08] MEDS ORDERED: CATHETER FLUSH 10 ML SYR IV PRN (19:00)
[2018-12-08] MEDS ORDERED: HOLD METFORMIN - RECEIVED CONTRAST 20 ML VIAL IV SCH (19:00)
[2018-12-08 19:03] LABS: BUN/CREATININE RATIO 37; CARBON DIOXIDE 20 MMOL/L (21-32); CHLORIDE 103 MMOL/L (98-107); CREATININE SERUM 0.86 MG/DL (0.60-1.30); GFR ESTIMATED > 60; GLUCOSE 97 MG/DL (70-105); POTASSIUM 4.8 MMOL/L (3.6-5.0); SODIUM 138 MMOL/L (135-145)
[2018-12-08 19:04] LABS: ALANINE AMINOTRANSFERASE 69 U/L (0-55); ALBUMIN 4.1 GM/DL (3.2-4.5); ALKALINE PHOSPHATASE 133 U/L (40-136); BILIRUBIN,TOTAL 0.2 MG/DL (0.1-1.0); CALCIUM 8.9 MG/DL (8.5-10.1); LIPASE 70 U/L (8-78); TOTAL PROTEIN 7.7 GM/DL (6.4-8.2)
[2018-12-08] MEDS ORDERED: morphine INJ 10 MG/ML 1ML (SYR OR VIAL) IVP STA (19:04)
[2018-12-08] MEDS ORDERED: METOCLOPRAMIDE INJ 10 MG/2 ML (REGLAN) IVP STA (19:06)
--- NOTE | 2018-12-08 19:51 | Diagnostic Imaging Report ---
PROCEDURE: CT abdomen and pelvis with contrast. TECHNIQUE: Multiple contiguous axial images were obtained through the abdomen and pelvis after administration of intravenous contrast. Auto Exposure Controls were utilized during the CT exam to meet ALARA standards for radiation dose reduction. INDICATION: Sudden onset of severe abdominal pain. No prior studies are available for comparison. Lung bases are clear. No discrete liver mass is seen apart from a tiny low density in the posterior right lobe measuring 7 mm. This is too small to characterize but may represent a cyst. There are stones within the gallbladder. No biliary duct dilatation is seen. The pancreas and spleen are unremarkable. No adrenal mass is seen. No definite renal calculi or hydronephrosis is seen. Aorta is heavily calcified but nonaneurysmal. Bowel loops are normal caliber. No obstruction is seen. There are inflammatory changes in the right lower quadrant. The appendix appears to be dilated and thick walled. The appendix extends towards the midline in the upper pelvis. There is periappendiceal inflammation and features are consistent with acute appendicitis. No abscess formation or bowel obstruction is seen. There is sigmoid diverticulosis without evidence of acute diverticulitis. No free fluid is seen. Bladder is unremarkable. 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 IMPRESSION: 1. Cholelithiasis. 2. Findings consistent with acute appendicitis. No abscess formation or bowel obstruction is seen. Dictated by: Dictated on workstation # [id number]
[2018-12-08] MEDS ORDERED: CIPROFLOXACIN IV 400MG/200ML 200 ML IV ONE (20:56)
[2018-12-08] MEDS ORDERED: metroNIDAZOLE 500MG/100ML IVPB 100 ML IV ONE (21:00)
--- OUTSIDE RECORDS SUMMARY | 2018-12-08 21:05 | XMS REPORT | Continuity of Care Document ---
Author Organization Unknown Address Unknown Allergies Active Description Code Type Severity Reaction Onset Reported/Identified Relationship to Patient Clinical Status Yes No Known Drug Allergies [id number] Drug Allergy Unknown N/A 12/08/2018 Medications There is no data. Problems Date Dx Coded Attending Type Code Diagnosis Diagnosed By 12/08/2018 HARVEY BARRY MD (DDU) Ot Z02.71 ENCOUNTER FOR DISABILITY DETERMINATION 12/08/2018 HARVEY BARRY MD (DDU) Ot Z02.71 ENCOUNTER FOR DISABILITY DETERMINATION Procedures There is no data. Results Test Result Range LIPID PANEL - 10/22/17 11:34 CHOLESTEROL, TOTAL 201 mg/dL <200 HDL CHOLESTEROL 37 mg/dL >40 TRIGLYCERIDES 309 mg/dL <150 LDL-CHOLESTEROL 120 mg/dL (calc) NRG CHOL/HDLC RATIO 5.4 (calc) <5.0 NON HDL CHOLESTEROL 164 mg/dL (calc) <130 Complete blood count (CBC) with automated white blood cell (WBC) differential - 12/08/18 18:35 Blood leukocytes automated count (number/volume) 13.3 10*3/uL 4.3-11.0 Blood erythrocytes automated count (number/volume) 4.68 10*6/uL 4.35-5.85 Venous blood hemoglobin measurement (mass/volume) 14.5 g/dL 13.3-17.7 Blood hematocrit (volume fraction) 43 % 40-54 Automated erythrocyte mean corpuscular volume 91 [foz_us] 80-99 Automated erythrocyte mean corpuscular hemoglobin (mass per erythrocyte) 31 pg 25-34 Automated erythrocyte mean corpuscular hemoglobin concentration measurement (mass/volume) 34 g/dL 32-36 Automated erythrocyte distribution width ratio 13.2 % 10.0- 14.5 Automated blood platelet count (count/volume) 245 10*3/uL 130-400 Automated blood platelet mean volume measurement 10.1 [foz_us] 7.4-10.4 Automated blood neutrophils/100 leukocytes 61 % 42-75 Automated blood lymphocytes/100 leukocytes 27 % 12-44 Blood monocytes/100 leukocytes 7 % 0-12 Automated blood eosinophils/100 leukocytes 4 % 0-10 Automated blood basophils/100 leukocytes 1 % 0-10 Blood neutrophils automated count (number/volume) 8.1 10*3 1.8-7.8 Blood lymphocytes automated count (number/volume) 3.6 10*3 1.0-4.0 Blood monocytes automated count (number/volume) 0.9 10*3 0.0- 1.0 Automated eosinophil count 0.6 10*3/uL 0.0-0.3 Automated blood basophil count (count/volume) 0.1 10*3/uL 0.0-0.1 Comprehensive metabolic panel - 12/08/18 18:35 Serum or plasma sodium measurement (moles/volume) 138 mmol/L 135-145 Serum or plasma potassium measurement (moles/volume) 4.8 mmol/L 3.6-5.0 Serum or plasma chloride measurement (moles/volume) 103 mmol/L 98-107 Carbon dioxide 20 mmol/L 21-32 Serum or plasma anion gap determination (moles/volume) 15 mmol/L 5-14 Serum or plasma urea nitrogen measurement (mass/volume) 32 mg/dL 7-18 Serum or plasma creatinine measurement (mass/volume) 0.86 mg/dL 0.60-1.30 Serum or plasma urea nitrogen/creatinine mass ratio 37 NRG Serum or plasma creatinine measurement with calculation of estimated glomerular filtration rate > NRG Serum or plasma glucose measurement (mass/volume) 97 mg/dL 70-105 Serum or plasma calcium measurement (mass/volume) 8.9 mg/dL 8.5-10.1 Serum or plasma total bilirubin measurement (mass/volume) 0.2 mg/dL 0.1-1.0 Serum or plasma alkaline phosphatase measurement (enzymatic activity/volume) 133 U/L 40-136 Serum or plasma aspartate aminotransferase measurement (enzymatic activity/volume) 33 U/L 5-34 Serum or plasma alanine aminotransferase measurement (enzymatic activity/volume) 69 U/L 0-55 Serum or plasma protein measurement (mass/volume) 7.7 g/dL 6.4-8.2 Serum or plasma albumin measurement (mass/volume) 4.1 g/dL 3.2-4.5 CALCIUM CORRECTED 8.8 mg/dL 8.5-10.1 Lipase - 12/08/18 18:35 Lipase 70 U/L 8-78 Serum or plasma ethanol measurement (mass/volume) - 12/08/18 18:35 Serum or plasma ethanol measurement (mass/volume) < mg/dL <10 Encounters ACCT No. Visit Date/Time Discharge Status Pt. Type Provider Facility Loc./Unit Complaint [id number] 10/17/2015 09:46:00 10/17/2015 23:59:59 CLS Outpatient HARVEY BARRY MD (DDU) [facility] RT COPD [id number] 12/08/2018 20:38:00 ACT Inpatient RENETTA COMBS MD [facility] 4TH ACUTE APPENDICITIS [id number] 10/11/2015 10:00:00 10/11/2015 23:59:59 CLS Preadmit Jennifer PERALTA, Harvey Rodrigues [facility]UL COPD [id number] 12/03/2017 14:00:00 12/03/2017 23:59:59 [id number] 10/22/2017 11:00:00 Document Registration
[2018-12-08 21:20] LABS: BILIRUBIN,URINE NEGATIVE (NEGATIVE); CLARITY,URINE CLEAR; COLOR,URINE YELLOW; GLUCOSE, URINE (UA) NEGATIVE (NEGATIVE); KETONES,URINE NEGATIVE (NEGATIVE); LEUKOCYTE ESTERASE ,URINE NEGATIVE (NEGATIVE); NITRITE,URINE NEGATIVE (NEGATIVE); PH,URINE 5.5 (5-9); PROTEIN,URINE NEGATIVE (NEGATIVE); SQUAMOUS EPITHELIAL CELL,UR RARE /HPF; UROBILINOGEN,URINE 0.2 MG/DL (NORMAL)
[2018-12-08 21:25] LABS: AMPHETAMINE SCREEN, URINE POSITIVE (NEGATIVE); BARBITURATE SCREEN URINE NEGATIVE (NEGATIVE); BENZODIAZEPINES SCREEN URINE NEGATIVE (NEGATIVE); CANNABINOID SCREEN, URINE POSITIVE (NEGATIVE); COCAINE SCREEN URINE NEGATIVE (NEGATIVE); METHAMPHETAMINE SCREEN URINE S POSITIVE (NEGATIVE); OPIATE SCREEN URINE POSITIVE (NEGATIVE); TRICYCLIC ANTIDEPRESSANTS SCRE POSITIVE (NEGATIVE)
[2018-12-08 21:26] LABS: METHADONE STAT NEGATIVE (NEGATIVE); OXYCODONE STAT NEGATIVE (NEGATIVE); PROPOXYPHENE STAT NEGATIVE (NEGATIVE)
[2018-12-08 22:18] VITALS: BP 121/75
--- NOTE | 2018-12-08 22:20 | NUR ---
CLIFTON URBANO admitted to room 409-1, with an admitting diagnosis of APPENDICITIS, on 12/08/18 from [place] [facility] via [facility], accompanied by EMT STAFF.CLIFTON URBANO introduced to surroundings, call light, bed controls, phone, TV, temperature control, lights, meal times, smoking policy, visitor policy, side rail policy, bathrooms and showers. Patient Rights given to patient in the handbook. CLIFTON URBANO verbalizes understanding that [facility] is not responsible for the loss or damage to any personal effects or valuables that are kept in the patients posession during their hospitalization. CLIFTON URBANO verbalizes understanding of Interdisciplinary Patient Education. Patient and/or family were informed about the Rapid Response Team and its purpose.
[2018-12-08] MEDS ORDERED: ONDANSETRON 4 MG/2 ML (SDV) Z0FRAN IV PRN (22:45)
[2018-12-08] MEDS: morphine INJ 4 MG/ML 1 ML (VIAL/SYRINGE) IV PRN (22:57)
[2018-12-08] MEDS: LACTATED RINGERS 1,000 ML IV SCH (22:59)
[2018-12-09] VITALS (12 sets, daily range): BP systolic 89–131; BP diastolic 50–90
[2018-12-09] MEDS: morphine INJ 4 MG/ML 1 ML (VIAL/SYRINGE) IV PRN ×3 (02:41→09:03)
[2018-12-09] MEDS: metroNIDAZOLE 500 MG/100 ML IVPB (PRE-MIX) IV SCH ×2 (06:37→13:41)
[2018-12-09] MEDS: LACTATED RINGERS 1,000 ML IV SCH ×2 (08:27→13:43)
[2018-12-09] MEDS ORDERED: CIPROFLOXACIN 400 MG/D5W 200 ML (PRE-MIX) IV SCH (09:00)
[2018-12-09] MEDS ORDERED: BUP/EPI 0.5% 1:200,000 (SENSORCAINE) 30 ML VIAL ONE (09:36)
[2018-12-09] MEDS ORDERED: QUET25TA73 PO (09:37)
[2018-12-09] MEDS ORDERED: AMLO10TA7 PO (09:37)
[2018-12-09] MEDS ORDERED: ALBU6.7H8 INH (09:37)
[2018-12-09] MEDS ORDERED: LOVA20TA2 PO (09:37)
[2018-12-09] MEDS ORDERED: DICL75TA2 PO (09:37)
[2018-12-09] MEDS ORDERED: METO-387 PO (09:37)
[2018-12-09] MEDS ORDERED: DEXAMETHASONE 10 MG/ML (DECADRON) 1 ML VIAL ONE (09:50)
[2018-12-09] MEDS ORDERED: proPOfol 200 MG/20 ML (DIPRIVAN) VIAL IV ONE (09:50)
[2018-12-09] MEDS ORDERED: ONDANSETRON 4 MG/2 ML (SDV) Z0FRAN ONE (09:50)
[2018-12-09] MEDS ORDERED: ROCURONIUM 10 MG/ML 5 ML SYRINGE IV ONE (09:50)
[2018-12-09] MEDS ORDERED: fentaNYL INJECTION 100 MCG/2 ML AMP ONE (09:50)
[2018-12-09] MEDS ORDERED: LIDOCAINE PF 2% 5 ML (XYLOCAINE) VIAL ONE (09:50)
[2018-12-09] MEDS ORDERED: MIDAZOLAM 2 MG/2 ML (VERSED) VIAL ONE (09:51)
[2018-12-09] MEDS ORDERED: LACTATED RINGERS 1,000 ML IV PRN (10:06)
--- NOTE | 2018-12-09 10:10 | NUR ---
LEFT FLOOR FOR SURGERY
[2018-12-09] MEDS ORDERED: fentaNYL INJECTION 100 MCG/2 ML AMP IVP ONE (10:15)
[2018-12-09] MEDS ORDERED: ONDANSETRON 4 MG/2 ML (SDV) Z0FRAN IVP PRN (10:15)
[2018-12-09] MEDS ORDERED: MEPERIDINE (DEMEROL) INJ 50 MG/ML IVP ONE (10:15)
[2018-12-09] MEDS ORDERED: morphine INJ 10 MG/ML 1ML (SYR OR VIAL) IVP ONE (10:15)
--- NOTE | 2018-12-09 10:48 | Progress Note-Pre Operative ---
Pre-Operative Progress Note H&P Reviewed The H&P was reviewed, patient examined and no changes noted. Date Seen by Provider: Dec 09, 2018 Time Seen by Provider: 10:45 Date H&P Reviewed: Dec 09, 2018 Time H&P Reviewed: 10:45 Pre-Operative Diagnosis: Acute Appendicitis MICHAEL RODRIGUEZ APRN Dec 09, 2018 10:48
[2018-12-09] MEDS ORDERED: SEVOFLURANE (ULTANE) 15 ML INHAL SOLN ONE ×2 (11:20→11:41)
[2018-12-09] MEDS ORDERED: PHENYLEPHRINE INJ 10 MG/ML (FOR DRIP KITS ONLY) ONE (11:26)
[2018-12-09] MEDS ORDERED: GLYCOPYRROLATE 0.2 MG/ML (ROBINUL) 2 ML VIAL ONE (11:27)
[2018-12-09] MEDS ORDERED: NEOSTIGMINE 3 MG/3 ML VIAL ONE (11:27)
[2018-12-09] MEDS ORDERED: PHENYLEPHRINE 100 MCG/ML 10 ML (ANESTHESIA) SYR ONE (11:30)
--- NOTE | 2018-12-09 11:36 | Progress Note-Post Operative ---
Post-Operative Progess Note Surgeon (s)/Membership Sales Advisor (s) Surgeon RENETTA COMBS MD Membership Sales Advisor: mendez roach [employer] CLERK Pre-Operative Diagnosis Acute Appendicitis Post-Operative Diagnosis same Procedure & Operative Findings Date of Procedure 12/09/18 Procedure Performed/Findings laparoscopic appendectomy Anesthesia Type GET Estimated Blood Loss Estimated blood loss (mL): minimal Specimens/Packing Specimens Removed appendix RENETTA COMBS MD Dec 09, 2018 11:36
[2018-12-09] MEDS ORDERED: CIPR-242 PO (11:42)
[2018-12-09] MEDS ORDERED: METR500T PO (11:42)
[2018-12-09] MEDS ORDERED: HYDR-34 PO (11:42)
--- NOTE | 2018-12-09 11:43 | Discharge Inst-Surgical ---
D/C Lap Instructions-LAURYN New, Converted, or Re-Newed RX: RX on Chart Follow Up Appt in 2 weeks Activity as tolerated No driving for 24 hours No [address] while on pain medications Incentive Spirometry use every 2 hours while awake Regular Diet Symptoms to Report: Fever over 101 degree F, Nausea/Vomiting Infection Signs and Symptoms to report: Increased redness, Foul odor of wound, Increased drainage Bathing instructions: May shower Operative Area Clean/Dry; Keep incision clean/dry If any problems/questions: Contact your physician or go to Emergency Room RENETTA COMBS MD Dec 09, 2018 11:43
[2018-12-09] MEDS ORDERED: HYDROcodone/APAP 7.5 MG/325 MG (LORTAB, LORCET PLUS) TABLET PO PRN (11:45)
--- NOTE | 2018-12-09 12:03 | HISTORY AND PHYSICAL ---
DATE OF SERVICE: ATTENDING PRIMARY CARE PHYSICIAN: Nick Dodd DO. HISTORY OF PRESENT ILLNESS: The patient is a 58-year-old male who presented to [facility] with acute onset of right lower abdominal quadrant pain. He states that this started earlier in the day and progressed. He reports that the pain was new and something that he has not experienced before. A CT scan was performed, which did show a dilated appendix with surrounding inflammation consistent with acute appendicitis. He was afebrile. His white count was elevated at 14. He was admitted to [facility]. PAST MEDICAL HISTORY: COPD, hypertension, hypercholesterolemia, diabetes, degenerative joint disease. PAST SURGICAL HISTORY: Tonsillectomy. ALLERGIES: No known drug allergies. MEDICATIONS: Inhaler, lisinopril, statin. SOCIAL HISTORY: Positive smoke 40 pack years. Negative alcohol. FAMILY HISTORY: Noncontributory. VITAL SIGNS: Stable, afebrile. REVIEW OF SYSTEMS: A well-nourished male in no acute distress. He is not experiencing any shortness of breath or difficulty breathing. No cough or sputum production. No nausea, vomiting, diarrhea, constipation, no red blood per rectum, no dark tarry stools. No fever, chills, no recent inadvertent weight loss. PHYSICAL EXAMINATION: CHEST: Distant breath sounds bilaterally with expiratory wheezes. HEART: Regular, no murmurs. EXTREMITIES: No lower extremity edema, negative Homans sign. HEENT: No scleral icterus. NECK: No cervical lymphadenopathy. ABDOMEN: Soft, nondistended. There is pain in the right lower abdominal quadrant with voluntary guarding, no rebound. SKIN: Warm, dry. ASSESSMENT AND PLAN: A 58-year-old male with acute appendicitis. The natural history of appendicitis was explained to the patient including the risks, benefits of surgery. He is in full understanding of this and would like to proceed with a laparoscopic appendectomy, which we will proceed with. Job ID: [id number] DocumentID: [id number] Dictated Date: 12/09/2018 10:57:30 Tenter Feeder Date: 12/09/2018 12:02:20 Dictated By: RENETTA COMBS MD
--- NOTE | 2018-12-09 14:14 | OPERATIVE REPORT ---
DATE OF SERVICE: 12/09/2018 ATTENDING PRIMARY CARE PHYSICIAN: Nick Dodd DO. PREOPERATIVE DIAGNOSIS: Acute appendicitis. POSTOPERATIVE DIAGNOSIS: Acute appendicitis. PROCEDURE PERFORMED: Laparoscopic appendectomy. SURGEON: Becky Lam MD. MACHINE TECH: Eyal Bledsoe APRN. ANESTHESIA: General endotracheal. ESTIMATED BLOOD LOSS: Minimal. FINDINGS: Acute appendicitis with no perforation; however, purulent fluid within the pelvis. DISPOSITION: The patient tolerated the procedure well. INDICATIONS: The patient is a 58-year-old male who presented to [facility] emergency room. He reported pain in the right lower abdominal quadrant of acute onset starting earlier that day and worsened over time. He reports that this is a new pain and he has not experienced this before. A CT scan was performed, which did show a dilated appendix with a periappendiceal fluid consistent with an acute appendicitis. He is not reporting any fever nor chills. DESCRIPTION OF PROCEDURE: The patient was brought to the operating room, laid supine on the table. After adequate IV pain and sedative medications and general endotracheal intubation, the abdomen was prepped and draped in standard surgical fashion. A 0.5% Marcaine with epinephrine was used to anesthetize the overlying skin. In the left upper abdominal quadrant, a transverse skin incision was made using a 15-blade. An #0 silk suture was applied to the medial aspect of the incision for retraction and a Veress needle inserted with a low opening pressure of 0 mmHg. The abdomen was then insufflated to 15 mmHg pressure. The Veress needle was removed and a 5 mm Xcel trocar placed followed by a 5 mm 45-degree angle laparoscope visualizing the peritoneal cavity. A 4-quadrant abdominal exploration was performed. There was an acute appendicitis; however, no leonardo perforation; however, there was a purulent fluid identified periappendiceal as well as in the pelvis. The remainder of the omentum, small bowel, colon appeared normal. The appendicitis appeared to be encompassing the body and tip of the pancreas; however, not at the cecum. Under direct visualization, we then proceed to place a supraumbilical 10-mm port after the skin and peritoneal lining were anesthetized using 0.5% Marcaine with epinephrine and a transverse skin incision was made using a 15-blade. In a similar manner, a suprapubic 5-mm port was placed. The patient was then placed in Trendelenburg position as well as plane right side up, left side down. The purulent fluid was irrigated and suctioned out. The appendix was then identified and retracted towards the anterior abdominal wall. The inflammation did not encompass the mesoappendix nor the cecal base and this was stapled and transected with a KATHRINE 45 mm stapler with a 2.5 mm thickness load with visualization of good hemostasis. The appendix was removed through the 10-mm port site using EndoCatch bag. A 15-Macedonian Bobby-Eden drain was then placed into the cecal base as well as the pelvis and brought out the suprapubic 5 mm port site. This was sutured to the skin using 3-0 nylon suture. The 10-mm port site fascia and peritoneum were then closed under direct visualization using Scott-Elvis device and #0 Vicryl suture. The abdomen was desufflated and remaining ports removed. All skin incisions were closed using 4-0 Monocryl running subcuticular sutures. Wounds were then cleaned and covered with Dermabond. The patient tolerated the procedure well. We will start IV and oral pain medication as well as a clear liquid diet and advance as tolerated. Once he is tolerating diet, ambulating well to the best of his ability and has adequate pain control, we will discharge him home. Job ID: [id number] DocumentID: [id number] Dictated Date: 12/09/2018 12:02:15 Wire Dropper Date: 12/09/2018 14:14:38 Dictated By: BECKY LAM MD
[2018-12-09] MEDS ORDERED: NICOTINE 21 MG (NICODERM) PATCH TD SCH (14:30)
--- NOTE | 2018-12-09 14:54 | NUR ---
PATIENT REQUEST NICOTINE PATCH. HE DECIDED HE DID NOT NEED IT WHEN HE FOUND OUT HE WAS GOING HOME.
[2018-12-10] MEDS ORDERED: PATCH REMOVAL TP SCH (09:00)
== END 2018-12-09 15:45 | disposition home or self-care (01) ==
LOC: EDUNIT# 18:25 → ER FS 18:27 → 4TH 20:38
PROVIDERS: ADMIT Surgery; ATTEND Surgery
DX: K35.80 Unspecified acute appendicitis (principal); I10 Essential (primary) hypertension; J44.9 Chronic obstructive pulmonary disease, unspecified; E78.00 Pure hypercholesterolemia, unspecified; E11.9 Type 2 diabetes mellitus without complications; M19.91 Primary osteoarthritis, unspecified site; F17.210 Nicotine dependence, cigarettes, uncomplicated; F15.90 Other stimulant use, unspecified, uncomplicated; Z79.899 Other long term (current) drug therapy
CPT/HCPCS: 36415; 74177; 80053; 80306; 80320; 81000; 83690; 85025; 87081; 96361; 96374; 96375

== ENCOUNTER 2022-03-18 11:28 | Emergency (ER) | payer MEDICAID ==
[~2022-03-18] VITALS: Ht 165 cm; Wt 68.0 kg
[~2022-03-18 11:28] MED LIST changes: +ALBU6.7H13 INH; +AMLO-251 PO; +CIPR-242 PO; +DICL75TA2 PO; +HYDR-34 PO; +LOVA20TA2 PO; +METR500T PO; +MTP25TSR PO; +QUET25TA35 PO; -metroNIDAZOLE 500 MG/100 ML IVPB (PRE-MIX) IV SCH
--- NOTE | 2022-03-18 12:20 | ED Respiratory ---
General Chief Complaint: Cardiac/General Problems Stated Complaint: HIGH BLOOD PRESSURE/SOA Nursing Triage Note: PT PRESENTS TO ED VIA POV FROM [facility] FOR COMPLAINTS OF INCREASED SOA X 2 WEEKS. PT STATES HE WENT TO [facility] TO SEE IF HE COULD GET A BREATHING TX/INHALER TO HELP WITH HIS COPD BUT WAS REFERRED TO ED FOR HIS ELEVATED BP. Source: patient Exam Limitations: no limitations History of Present Illness Date Seen by Provider: Mar 18, 2022 Time Seen by Provider: 12:00 Initial Comments This is a 62-year-old male who was referred to the emergency department from [facility] walk-in clinic for concerns of increased shortness of air and extremely elevated blood pressure. He has a history of COPD and hypertension, is not on any medications at this time because he just moved to the area from [place] on February 18. States that he went to walk-in today to see if they could give him an inhaler. States he has not taken any antihypertensives for the past 2 years, was on lisinopril and "something else" in the past. His typical blood pressure is systolic 160s. His only complaint at this time is he is having shortness of air and wheezing, consistent with previous episodes of COPD exacerbation. Denies fever, chills, chest pain, nausea, vomiting, abdominal pain. He is a daily smoker. Allergies and Home Medications Allergies Coded Allergies: No Known Drug Allergies (Unverified , 12/08/18) Patient Home Medication List Home Medication List Reviewed: Yes Albuterol Sulfate (Proventil Hfa) 6.7 Gm Hfa.aer.ad, 2 PUFF INH Q4H PRN for WHEEZING, (Reported) Entered as Reported by: BENSON LACEY on 12/09/18 0937 Albuterol Sulfate (Albuterol Sulfate) 2.5 Mg/3 Ml (0.083 %) Vial.neb, 2.5 MG INH Q4H PRN for SHORTNESS OF BREATH Prescribed by: BRITNEY RUDD on 03/18/22 1424 Amlodipine Besylate (Amlodipine Besylate) 10 Mg Tablet, 10 MG PO DAILY, (Reported) Entered as Reported by: BENSON LACEY on 12/09/18 0937 Amlodipine Besylate (Amlodipine Besylate) 10 Mg Tablet, 10 MG PO DAILY Prescribed by: BRITNEY RUDD on 03/18/22 1424 Ciprofloxacin/Ciprofloxa HCl (Cipro Xr 500 mg Tablet) 500 Mg Tbmp.24hr, 500 MG PO BID Prescribed by: RENETTA COMBS on 12/09/18 114 Diclofenac Sodium (Diclofenac Sodium) 75 Mg Tablet.dr, 75 MG PO BID, (Reported) Entered as Reported by: BENSON LACEY on 12/09/18936 Fluticasone/Salmeterol (Advair 250-50 Diskus) 250 Mcg-50 Mcg/Dose Blst.w.dev, 1 EACH IH BID Prescribed by: BRITNEY RUDD on 03/18/22 142 Hydrocodone Bit/Acetaminophen (Lortab 7.5 Mg Tablet) 1 Ea Tablet, 1 EACH PO Q4H PRN for PAIN-MODERATE Prescribed by: RENETTA COMBS on 12/09/18 114 Lovastatin (Lovastatin) 20 Mg Tablet, 20 MG PO DAILY, (Reported) Entered as Reported by: BENSON LACEY on 12/09/18 09 Metoprolol Succinate (Metoprolol Succinate) 25 Mg Tab.er.24h, 25 MG PO DAILY, (Reported) Entered as Reported by: BENSON LACEY on 12/09/18936 Metoprolol Succinate (Metoprolol Succinate) 50 Mg Tab.er.24h, 50 MG PO DAILY Prescribed by: BRITNEY RUDD on 03/18/22 142 Metronidazole (Flagyl) 500 Mg Tablet, 500 MG PO BID Prescribed by: RENETTA COMBS on 12/09/18 114 Prednisone (Prednisone) 50 Mg Tab, 50 MG PO DAILY Prescribed by: BRITNEY RUDD on 03/18/22 142 Quetiapine Fumarate (Quetiapine Fumarate) 25 Mg Tablet, 1-2 TAB PO HS, (Reported) Entered as Reported by: BENSON LACEY on 12/09/18936 Review of Systems Review of Systems Constitutional: see HPI EENTM: no symptoms reported Respiratory: cough, short of breath, wheezing Cardiovascular: no symptoms reported Gastrointestinal: no symptoms reported Genitourinary: no symptoms reported Musculoskeletal: no symptoms reported Skin: no symptoms reported Psychiatric/Neurological: No Symptoms Reported Hematologic/Lymphatic: No Symptoms Reported Immunological/Allergic: no symptoms reported Past Fqyqisk-Vqkner-Tbnvye Hx Patient Social History Tobacco Use?: Yes Tobacco type used: Cigarettes Smoking Status: Current Everyday Smoker Substance use?: No Alcohol Use?: No Pt feels they are or have been: No Immunizations Up To Date First/Initial COVID19 Vaccinat: yes Second COVID19 Vaccination Trevor: yes Seasonal Allergies Seasonal Allergies: No Past Medical History Surgery/Hospitalization HX: appy, hip replacement. pmh: high cholesterol, htn, copd, prostate, chronic back pain Surgeries: No Respiratory: Yes COPD Cardiac: Yes Hypertension Neurological: No Genitourinary: Yes Prostate Problems Gastrointestinal: No Musculoskeletal: No Endocrine: No HEENT: No Cancer: No Psychosocial: No Integumentary: No Blood Disorders: No Family Medical History Alzheimer's disease 19 MOTHER Cardiovascular disease 19 FATHER Physical Exam Vital Signs - First Documented 03/18/22 03/18/22 11:40 12:34 Temp 36.1 Pulse 95 Resp 16 B/P (MAP) 253/130 (171) Pulse Ox 98 O2 Delivery Room Air Capillary Refill : Less Than 3 Seconds Height: 5'5.00" Weight: 147lbs. 2.0oz. 66.448706ds; 24.00 BMI Method:Stated General Appearance: WD/WN, no apparent distress Eyes: Bilateral Eye Normal Inspection, Bilateral Eye PERRL, Bilateral Eye EOMI HEENT: PERRL/EOMI, normal ENT inspection, pharynx normal Neck: full range of motion, supple, normal inspection Respiratory: normal breath sounds, no respiratory distress, no accessory muscle use, wheezing, expiration Cardiovascular: regular rate, rhythm, no murmur Gastrointestinal: normal bowel sounds, non tender, soft Extremities: normal range of motion, normal inspection Neurologic/Psychiatric: no motor/sensory deficits, alert, normal mood/affect, oriented x 3 Skin: normal color, warm/dry Progress/Results/Core Measures Suspected Sepsis SIRS Temperature: Pulse: 95 Respiratory Rate: 16 Laboratory Tests 03/18/22 12:05: White Blood Count 6.9 Blood Pressure 253 /130 Mean: 171 Laboratory Tests 03/18/22 12:05: Creatinine 0.85, Platelet Count 267, Total Bilirubin 0.8 Results/Orders Lab Results Laboratory Tests Test 03/18/22 12:05 03/18/22 13:13 Range/Units White Blood Count 6.9 4.3-11.0 10^3/uL Red Blood Count 5.43 4.30-5.52 10^6/uL Hemoglobin 17.3 13.3-17.7 g/dL Hematocrit 49 40-54 % Mean Corpuscular Volume 91 80-99 fL Mean Corpuscular Hemoglobin 32 25-34 pg Mean Corpuscular Hemoglobin Concent 35 32-36 g/dL Red Cell Distribution Width 12.5 10.0-14.5 % Platelet Count 267 130-400 10^3/uL Mean Platelet Volume 10.9 9.0-12.2 fL Immature Granulocyte % (Auto) 0 % Neutrophils (%) (Auto) 53 42-75 % Lymphocytes (%) (Auto) 33 12-44 % Monocytes (%) (Auto) 7 0-12 % Eosinophils (%) (Auto) 6 0-10 % Basophils (%) (Auto) 1 0-10 % Neutrophils # (Auto) 3.6 1.8-7.8 10^3/uL Lymphocytes # (Auto) 2.2 1.0-4.0 10^3/uL Monocytes # (Auto) 0.5 0.0-1.0 10^3/uL Eosinophils # (Auto) 0.4 H 0.0-0.3 10^3/uL Basophils # (Auto) 0.1 0.0-0.1 10^3/uL Immature Granulocyte # (Auto) 0.0 0.0-0.1 10^3/uL Sodium Level 138 135-145 MMOL/L Potassium Level 4.3 3.6-5.0 MMOL/L Chloride Level 107 98-107 MMOL/L Carbon Dioxide Level 21 21-32 MMOL/L Anion Gap 10 5-14 MMOL/L Blood Urea Nitrogen 13 7-18 MG/DL Creatinine 0.85 0.60-1.30 MG/DL Estimat Glomerular Filtration Rate 98 BUN/Creatinine Ratio 15 Glucose Level 100 70-105 MG/DL Calcium Level 9.8 8.5-10.1 MG/DL Corrected Calcium 8.5-10.1 MG/DL Total Bilirubin 0.8 0.1-1.0 MG/DL Aspartate Amino Transf (AST/SGOT) 36 H 5-34 U/L Alanine Aminotransferase (ALT/SGPT) 70 H 0-55 U/L Alkaline Phosphatase 95 40-136 U/L Total Protein 8.4 H 6.4-8.2 GM/DL Albumin 4.6 H 3.2-4.5 GM/DL Urine Color YELLOW Urine Clarity CLEAR Urine pH 5.01.025 5-9 Urine Specific [place] NEG 1.016-1.022 Urine Protein NEGATIVE NEGATIVE Urine Glucose (UA) NEGATIVE NEGATIVE Urine Ketones NEGATIVE NEGATIVE Urine Nitrite NEGATIVE NEGATIVE Urine Bilirubin NEGATIVE NEGATIVE Urine Urobilinogen 0.2 < = 1.0 MG/DL Urine Leukocyte Esterase NEGATIVE NEGATIVE Urine RBC (Auto) NEGATIVE NEGATIVE Urine RBC NONE /HPF Urine WBC NONE /HPF Urine Squamous Epithelial Cells NONE /HPF Urine Crystals NONE /LPF Urine Bacteria NEGATIVE /HPF Urine Casts NONE /LPF Urine Mucus NEGATIVE /LPF Urine Culture Indicated NO My Orders Orders - BRITNEY RUDD ROLLING UP MACHINE OPERATOR Albuterol/Ipra Inhalation Soln (Duoneb I (03/18/22 12:30) Svn Small Volume Nebulizer (03/18/22 12:16) Methylprednisolone Sod Succ (Solu-Medrol (03/18/22 12:30) Cbc With Automated Diff (03/18/22 12:16) Comprehensive Metabolic Panel (03/18/22 12:16) Hydralazine Injection (Apresoline Inject (03/18/22 12:30) Clonidine Tablet (Catapres Tablet) (03/18/22 13:15) Ua Culture If Indicated (03/18/22 13:09) Medications Given in ED Current Medications Medications Dose Ordered Sig/Rosalee Route Start Time Stop Time Status Last Admin Dose Admin Albuterol/ Ipratropium 3 ml ONCE ONCE INH 03/18/22 12:30 03/18/22 12:31 DC 03/18/22 12:34 3 ML Clonidine HCl 0.1 mg ONCE ONCE PO 03/18/22 13:15 03/18/22 13:16 DC 03/18/22 13:56 0.1 MG Hydralazine HCl 10 mg ONCE ONCE IV 03/18/22 12:30 03/18/22 12:31 DC 03/18/22 12:27 10 MG Methylprednisolone Sodium Succinate 125 mg ONCE ONCE IVP 03/18/22 12:30 03/18/22 12:31 DC 03/18/22 12:27 125 MG Vital Signs/I&O 03/18/22 03/18/22 03/18/22 11:40 12:34 14:40 Temp 36.1 Pulse 95 95 Resp 16 16 B/P (MAP) 253/130 (171) 184/110 Pulse Ox 98 96 95 O2 Delivery Room Air Room Air Capillary Refill : Less Than 3 Seconds Blood Pressure Mean: 171 Progress Note : Progress Note Patient examined no acute distress. He is a little short of breath during exam, audible wheezing. His blood pressure is 200's/120's upon arrival. Ordered DuoNeb, Solu-Medrol, and basic labs. We will trial hydralazine 10 mg IV push and reevaluate. Plan reviewed with patient and he is agreeable with current plan. Wheezing improved after Duoneb, reported feeling "like I can breathe now". Basic labs reviewed, no elevation of white count, hemoglobin stable, BUN and creatinine normal, does have slight elevation in his LFTs, asymptomatic. No improvement of blood pressure with Hydralazine, given Clonidine 0.1mg PO and monitored. BP 190's/100's. Discussed admission for hypertensive urgency and his COPD. He is adamant he will not stay for hospitalization. Informed he has significant risk of OR, stroke, for severe elevation in blood pressure. States he understands the risks and "respectfully choose not to stay". He is working to establish care at [facility]. Will restart his antihypertensives, given Albuterol (requested nebulizer) stating this works better for him, and short burst of steroids. Discussed risk/benefits of Prednisone as he already has hypertension, however he will require short burst to recover from COPD exacerbation. He is unwilling to wait to evaluate effectiveness of Clonidine and wants to discharge. Nurse at bedside when I reiterated risks of leaving AMA with hypertensive urgency, acknowledge and accepted risk, he signed out AMA. Strongly reinforced to return for any chest pain, weakness, slurred speech, severe headache or any other concerning symptoms. Verbalized understanding. Verbalized appreciation of care today and states he will call for close follow up and to establish care after discharge. Departure Impression Primary Impression: COPD exacerbation Additional Impression: Asymptomatic hypertensive urgency Disposition: AGAINST MEDICAL ADVICE Condition: Stable Departure-Patient Inst. Decision time for Depature: 13:14 Referrals: [facility] (PCP/Family) Primary Care Physician Patient Instructions: COPD Exacerbation, Adult ED, High Blood Pressure ED Add. Discharge Instructions: Plan: 1. Call [facility] later today to schedule appointment to establish care, You will need to have close follow-up within 48 hours of the emergency department visit today. 2. Take your metoprolol once a day with your amlodipine for your blood pressure. If you are able continue to monitor your blood pressure at home. 3. I recommend decreasing the number of cigarettes you smoke, avoid using nicotine patches at this time as this can also elevate your blood pressure. 4. you can use albuterol nebulizers every 4 hours as needed for wheezing or shortness of breath. 5. Take your steroids daily as directed, take them with food to prevent GI upset. 6. If you have any chest pain, headache, shortness of breath, weakness, slurred speech, any other new or concerning symptoms please return immediately to the emergency department. All discharge instructions reviewed with patient and/or family. Voiced understanding. Scripts Amlodipine Besylate (Amlodipine Besylate) 10 Mg Tablet 10 MG PO DAILY for 30 Days, #30 TAB 0 Refills Prov: BRITNEY RUDD ROLLING UP MACHINE OPERATOR 03/18/22 Fluticasone/Salmeterol (Advair 250-50 Diskus) 250 Mcg-50 Mcg/Dose Blst.w.dev 1 EACH IH BID for 30 Days, #1 EACH 0 Refills Prov: BRITNEY RUDD ROLLING UP MACHINE OPERATOR 03/18/22 Prednisone (Prednisone) 50 Mg Tab 50 MG PO DAILY for 5 Days, #5 TAB 0 Refills Prov: BRITNEY RUDD ROLLING UP MACHINE OPERATOR 03/18/22 Metoprolol Succinate (Metoprolol Succinate) 50 Mg Tab.er.24h 50 MG PO DAILY for 30 Days, #30 TAB 0 Refills Prov: BRITNEY RUDD ROLLING UP MACHINE OPERATOR 03/18/22 Albuterol Sulfate (Albuterol Sulfate) 2.5 Mg/3 Ml (0.083 %) Vial.neb 2.5 MG INH Q4H PRN for SHORTNESS OF BREATH for 30 Days, #60 EA 0 Refills Prov: BRITNEY RUDD ROLLING UP MACHINE OPERATOR 03/18/22 BRITNEY RUDD ROLLING UP MACHINE OPERATOR Mar 18, 2022 12:20
[2022-03-18 12:23] LABS: ALBUMIN 4.6 GM/DL (3.2-4.5)
[2022-03-18 12:24] LABS: CHLORIDE 107 MMOL/L (98-107); POTASSIUM 4.3 MMOL/L (3.6-5.0); SODIUM 138 MMOL/L (135-145)
[2022-03-18 12:25] LABS: CALCIUM 9.8 MG/DL (8.5-10.1)
[2022-03-18 12:26] LABS: GLUCOSE 100 MG/DL (70-105); TOTAL PROTEIN 8.4 GM/DL (6.4-8.2)
[2022-03-18 12:27] LABS: BASOPHILS # (AUTO) 0.1 10^3/uL (0.0-0.1); BASOPHILS % (AUTO) 1 % (0-10); CARBON DIOXIDE 21 MMOL/L (21-32); EOSINOPHILS # (AUTO) 0.4 10^3/uL (0.0-0.3); EOSINOPHILS % (AUTO) 6 % (0-10); HEMATOCRIT 49 % (40-54); HEMOGLOBIN 17.3 g/dL (13.3-17.7); LYMPHOCYTES # (AUTO) 2.2 10^3/uL (1.0-4.0); LYMPHOCYTES % (AUTO) 33 % (12-44); MEAN CORPUSCULAR HEMOGLOBIN 32 pg (25-34); MEAN CORPUSCULAR HGB CONC 35 g/dL (32-36); MEAN CORPUSCULAR VOLUME 91 fL (80-99); MEAN PLATELET VOLUME 10.9 fL (9.0-12.2); MONOCYTES # (AUTO) 0.5 10^3/uL (0.0-1.0); MONOCYTES % (AUTO) 7 % (0-12); NEUTROPHILS # (AUTO) 3.6 10^3/uL (1.8-7.8); NEUTROPHILS % (AUTO) 53 % (42-75); PLATELET COUNT 267 10^3/uL (130-400); WHITE BLOOD COUNT 6.9 10^3/uL (4.3-11.0)
[2022-03-18 12:28] LABS: BILIRUBIN,TOTAL 0.8 MG/DL (0.1-1.0)
[2022-03-18 12:29] LABS: ALKALINE PHOSPHATASE 95 U/L (40-136)
[2022-03-18 12:30] LABS: CREATININE SERUM 0.85 MG/DL (0.60-1.30); GFR ESTIMATED 98
[2022-03-18] MEDS ORDERED: RT-ALBUTEROL/IPRATROPIUM 3 ML (DUONEB) VIAL INH ONE (12:30)
[2022-03-18] MEDS ORDERED: hydrALAZINE (APESOLINE) 20 MG/ML VIAL IV ONE (12:30)
[2022-03-18] MEDS ORDERED: methylPREDNISolone 125 MG (Solu-MEDROL) VIAL IVP ONE (12:30)
[2022-03-18 12:31] LABS: BUN/CREATININE RATIO 15
[2022-03-18 12:32] LABS: ALANINE AMINOTRANSFERASE 70 U/L (0-55)
[2022-03-18] MEDS ORDERED: cloNIDine 0.1 MG (CATAPRES) TAB PO ONE (13:15)
[2022-03-18 13:37] LABS: BACTERIA,URINE NEGATIVE /HPF; BILIRUBIN,URINE NEGATIVE (NEGATIVE); CLARITY,URINE CLEAR; COLOR,URINE YELLOW; GLUCOSE, URINE (UA) NEGATIVE (NEGATIVE); KETONES,URINE NEGATIVE (NEGATIVE); LEUKOCYTE ESTERASE ,URINE NEGATIVE (NEGATIVE); NITRITE,URINE NEGATIVE (NEGATIVE); PH,URINE 5.01.025 (5-9); PROTEIN,URINE NEGATIVE (NEGATIVE)
[2022-03-18] MEDS ORDERED: FLUT1DIS26 IH (14:24)
[2022-03-18] MEDS ORDERED: AMLO-251 PO (14:24)
[2022-03-18] MEDS ORDERED: PRD50T PO (14:24)
[2022-03-18] MEDS ORDERED: METO50TA7 PO (14:24)
[2022-03-18] MEDS ORDERED: ALBU2.5V4 INH (14:24)
[2022-03-18 14:40] VITALS: BP 184/110
== END 2022-03-18 14:40 | disposition home or self-care (01) ==
LOC: EDUNIT# 11:28 → ER 11:32
DX: J44.1 Chronic obstructive pulmonary disease with (acute) exacerbation (principal); I16.0 Hypertensive urgency; R79.89 Other specified abnormal findings of blood chemistry; F17.210 Nicotine dependence, cigarettes, uncomplicated; Z91.14 Patient's other noncompliance with medication regimen
CPT/HCPCS: 36415; 80053; 81000; 85025; 94640

== ENCOUNTER 2022-06-02 04:20 | Emergency (ER) | payer MEDICAID ==
[~2022-06-02] VITALS: Ht 165.1 cm; Wt 68.0 kg
[~2022-06-02 04:20] MED LIST changes: +ALBU2.5V4 INH; +FLUT1DIS26 IH; +METO50TA7 PO; +PRD50T PO
--- NOTE | 2022-06-02 04:32 | ED Respiratory ---
General Chief Complaint: Respiratory Problems Stated Complaint: SOB Source: patient, EMS Exam Limitations: no limitations History of Present Illness Date Seen by Provider: Jun 02, 2022 Time Seen by Provider: 04:20 Initial Comments This is a 62-year-old male history of COPD, hypertension who presents to the emergency room by ambulance profoundly short of breath. Patient has recently run out of his breathing medications. EMS reported that his nebulizer tubing was at his nose running on just "water". The patient has been coughing and wheezing intermittently for several days but over the course of the evening tonight he became much more short of breath. He has been spacing out his blood pressure medications in order to try to make some last until an appointment at [facility] on June 12. He states he did take some today, amlodipine 10 mg however his blood pressure is 200/130. He is quite tachycardic in the 130s. He denies chest pain. No productive cough. No swelling in his legs. He states he has "a strong heart". He had hip surgery a year ago and states that he was put through a lot of tests and had no heart issues. He continues to smoke. Denies illness symptoms such as fever, body aches, nausea, vomiting, diarrhea. No COVID or flu concerns this morning. He states he took some prednisone about a month ago that really helped him. He was only given 5 days worth. EMS reported that someone was smoking in the home when they picked him up. Timing/Duration: yesterday Severity: severe Prior Episodes/Possible Cause: occasional episodes Associated Symptoms: cough, shortness of breath, wheezing Allergies and Home Medications Allergies Coded Allergies: No Known Drug Allergies (Unverified , 12/08/18) Patient Home Medication List Home Medication List Reviewed: Yes Albuterol Sulfate (Proventil Hfa) 6.7 Gm Hfa.aer.ad, 2 PUFF INH Q4H PRN for WHEEZING, (Reported) Entered as Reported by: BENSON LACEY on 12/09/18 0937 Albuterol Sulfate (Albuterol Sulfate) 2.5 Mg/3 Ml (0.083 %) Vial.neb, 2.5 MG INH Q4H PRN for SHORTNESS OF BREATH Prescribed by: BRITNEY RUDD on 03/18/22 1424 Albuterol Sulfate (Ventolin Hfa) 90 Mcg Hfa.aer.ad, 2 PUFF INH Q6H PRN for SHORTNESS OF BREATH Prescribed by: MADDIE EL on 06/02/22 06 Albuterol Sulfate (Albuterol Sulfate) 2.5 Mg/3 Ml (0.083 %) Vial.neb, 2.5 MG INH Q6H PRN for WHEEZING Prescribed by: MADDIE EL on 06/02/22 06 Amlodipine Besylate (Amlodipine Besylate) 10 Mg Tablet, 10 MG PO DAILY, (Reported) Entered as Reported by: BENSON LACEY on 12/09/18936 Amlodipine Besylate (Amlodipine Besylate) 10 Mg Tablet, 10 MG PO DAILY Prescribed by: BRITNEY RUDD on 03/18/22 142 Azithromycin (Azithromycin) 250 Mg Tablet, 250 MG PO UD Prescribed by: MADDIE EL on 06/02/22608 Ciprofloxacin/Ciprofloxa HCl (Cipro Xr 500 mg Tablet) 500 Mg Tbmp.24hr, 500 MG PO BID Prescribed by: RENETTA COMBS on 12/09/18 114 Diclofenac Sodium (Diclofenac Sodium) 75 Mg Tablet.dr, 75 MG PO BID, (Reported) Entered as Reported by: BENSON LACEY on 12/09/18936 Fluticasone/Salmeterol (Advair 250-50 Diskus) 250 Mcg-50 Mcg/Dose Blst.w.dev, 1 EACH IH BID Prescribed by: BRITNEY RUDD on 03/18/22 142 Hydrocodone Bit/Acetaminophen (Lortab 7.5 Mg Tablet) 1 Ea Tablet, 1 EACH PO Q4H PRN for PAIN-MODERATE Prescribed by: RENETTA COMBS on 12/09/18 114 Lovastatin (Lovastatin) 20 Mg Tablet, 20 MG PO DAILY, (Reported) Entered as Reported by: BENSON LACEY on 12/09/18936 Metoprolol Succinate (Metoprolol Succinate) 25 Mg Tab.er.24h, 25 MG PO DAILY, (Reported) Entered as Reported by: BENSON LACEY on 12/09/18936 Metoprolol Succinate (Metoprolol Succinate) 50 Mg Tab.er.24h, 50 MG PO DAILY Prescribed by: BRITNEY RUDD on 03/18/22 142 Metronidazole (Flagyl) 500 Mg Tablet, 500 MG PO BID Prescribed by: RENETTA COMBS on 12/09/18 1142 Prednisone (Prednisone) 50 Mg Tab, 50 MG PO DAILY Prescribed by: BRITNEY RUDD on 03/18/22 1424 Prednisone (Prednisone) 50 Mg Tab, 50 MG PO DAILY Prescribed by: MADDIE EL on 06/02/22 0609 Quetiapine Fumarate (Quetiapine Fumarate) 25 Mg Tablet, 1-2 TAB PO HS, (Reported) Entered as Reported by: BENSON LACEY on 12/09/18 0937 Review of Systems Review of Systems Constitutional: see HPI EENTM: no symptoms reported Respiratory: cough, short of breath, wheezing Cardiovascular: no symptoms reported Gastrointestinal: no symptoms reported Genitourinary: no symptoms reported Musculoskeletal: no symptoms reported Skin: no symptoms reported Psychiatric/Neurological: No Symptoms Reported All Other Systems Reviewed Negative Unless Noted: Yes Past Eqmtoop-Hcveye-Jjmiwi Hx Immunizations Up To Date First/Initial COVID19 Vaccinat: yes Second COVID19 Vaccination Trevor: yes Seasonal Allergies Seasonal Allergies: No Past Medical History Surgery/Hospitalization HX: appy, hip replacement. pmh: high cholesterol, htn, copd, prostate, chronic back pain Surgeries: No Respiratory: Yes COPD Cardiac: Yes Hypertension Neurological: No Genitourinary: Yes Prostate Problems Gastrointestinal: No Musculoskeletal: No Endocrine: No HEENT: No Cancer: No Psychosocial: No Integumentary: No Blood Disorders: No Family Medical History Alzheimer's disease 19 MOTHER Cardiovascular disease 19 FATHER Physical Exam Vital Signs - First Documented 06/02/22 04:21 Temp 36.6 Pulse 120 Resp 26 B/P (MAP) 174/126 (142) Pulse Ox 99 O2 Delivery Nasal Cannula O2 Flow Rate 5.00 Capillary Refill : Height: 5'5.00" Weight: 147lbs. 2.0oz. 66.353146wa; 24.00 BMI Method:Stated General Appearance: WD/WN, mild distress Eyes: Bilateral Eye Normal Inspection, Bilateral Eye PERRL, Bilateral Eye EOMI HEENT: PERRL/EOMI Neck: normal inspection Respiratory: no respiratory distress, no accessory muscle use, crackles, wheezing, other (Sounds dyspneic in conversation but is able to complete full sentences.) Cardiovascular: regular rate, rhythm, tachycardia (120) Gastrointestinal: normal bowel sounds, non tender, soft Extremities: non-tender, normal inspection, no pedal edema, no calf tenderness Neurologic/Psychiatric: no motor/sensory deficits, alert, normal mood/affect, oriented x 3 Skin: normal color, warm/dry Progress/Results/Core Measures Suspected Sepsis SIRS Temperature: Pulse: Respiratory Rate: Laboratory Tests 06/02/22 05:15: White Blood Count 11.0 Blood Pressure / Mean: Laboratory Tests 06/02/22 05:15: Creatinine 0.82, Platelet Count 207 Results/Orders Lab Results Laboratory Tests Test 06/02/22 05:15 Range/Units White Blood Count 11.0 4.3-11.0 10^3/uL Red Blood Count 5.47 4.30-5.52 10^6/uL Hemoglobin 17.3 13.3-17.7 g/dL Hematocrit 49 40-54 % Mean Corpuscular Volume 90 80-99 fL Mean Corpuscular Hemoglobin 32 25-34 pg Mean Corpuscular Hemoglobin Concent 35 32-36 g/dL Red Cell Distribution Width 12.3 10.0-14.5 % Platelet Count 207 130-400 10^3/uL Mean Platelet Volume 10.2 9.0-12.2 fL Immature Granulocyte % (Auto) 0 % Neutrophils (%) (Auto) 75 42-75 % Lymphocytes (%) (Auto) 16 12-44 % Monocytes (%) (Auto) 6 0-12 % Eosinophils (%) (Auto) 3 0-10 % Basophils (%) (Auto) 1 0-10 % Neutrophils # (Auto) 8.2 H 1.8-7.8 10^3/uL Lymphocytes # (Auto) 1.8 1.0-4.0 10^3/uL Monocytes # (Auto) 0.7 0.0-1.0 10^3/uL Eosinophils # (Auto) 0.3 0.0-0.3 10^3/uL Basophils # (Auto) 0.1 0.0-0.1 10^3/uL Immature Granulocyte # (Auto) 0.0 0.0-0.1 10^3/uL Sodium Level 138 135-145 MMOL/L Potassium Level 3.7 3.6-5.0 MMOL/L Chloride Level 108 H 98-107 MMOL/L Carbon Dioxide Level 17 L 21-32 MMOL/L Anion Gap 13 5-14 MMOL/L Blood Urea Nitrogen 14 7-18 MG/DL Creatinine 0.82 0.60-1.30 MG/DL Estimat Glomerular Filtration Rate 99 BUN/Creatinine Ratio 17 Glucose Level 116 H 70-105 MG/DL Calcium Level 9.7 8.5-10.1 MG/DL Procalcitonin 0.02 <0.10 NG/ML My Orders Orders - MADDIE EL MD Ed Iv/Invasive Line Start (06/02/22 04:32) Cbc With Automated Diff (06/02/22 04:32) Basic Metabolic Panel (06/02/22 04:32) Chest 1 View, Ap/Pa Only (06/02/22 04:32) Procalcitonin (Pct) (06/02/22 04:32) Methylprednisolone Sod Succ (Solu-Medrol (06/02/22 04:45) Labetalol Injection (Normodyne Injection (06/02/22 04:45) Albuterol Pre-Mix Nebs (Rt) (Proventil (06/02/22 04:45) Albuterol/Ipra Inhalation Soln (Duoneb I (06/02/22 04:45) Svn Small Volume Nebulizer (06/02/22 04:32) Svn Small Volume Nebulizer (06/02/22 04:32) Medications Given in ED Vital Signs/I&O 06/02/22 06/02/22 06/02/22 06/02/22 04:21 04:21 04:49 04:50 Temp 36.6 36.6 Pulse 120 88 Resp 26 B/P (MAP) 174/126 (142) 140/77 (98) Pulse Ox 99 96 96 O2 Delivery Nasal Cannula Nasal Cannula Nasal Cannula Nasal Cannula O2 Flow Rate 5.00 5.00 1.00 1.00 06/02/22 06:33 Temp 36.6 Pulse 92 Resp 20 B/P (MAP) 135/93 Pulse Ox 95 O2 Delivery Room Air Capillary Refill : Progress Note #1: Time: 05:45 Progress Note Patient just finished hour long breathing treatment. Feeling much better. Not as labored. Labs pending (chem and procal). CBC normal; Progress Note #2: Time: 06:06 Progress Note Patient reexamined, still has some very slight expiratory wheeze. Feeling much better. Room air sats 96%. No evidence of respiratory distress at this time. Will write him for some nebulizer medication as well as an MDI and blood pressure medicine to get him through to 12 June when he has his follow-up appointment with [facility]. Diagnostic Imaging Diagonstic Imaging: Xray Plain Films/CT/US/NM/MRI: chest Comments chest xray - interpreted by me - no focal infiltrates Counseling-Symptomatic: 3-10 Minutes Departure Impression Primary Impression: COPD exacerbation Additional Impression: Tobacco abuse Disposition: HOME, SELF-CARE Condition: Improved Departure-Patient Inst. Decision time for Depature: 06:07 Referrals: [facility] (PCP/Family) Primary Care Physician Add. Discharge Instructions: Take the antibiotics as directed. Use the nebulizer every 6 hours for a couple of days. You can use the inhaler every 4 hours as needed. Prednisone once a day for 5 days starting tomorrow. Return to the Emergency Department if you have any new, emergent or concerning symptoms. You need to stop smoking. Scripts Azithromycin (Azithromycin) 250 Mg Tablet 250 MG PO UD, #6 TAB TAKE 2 TABLETS ON DAY ONE THEN TAKE 1 TABLET DAILY FOR FOUR MORE DAYS Prov: MADDIE EL MD 06/02/22 Albuterol Sulfate (Albuterol Sulfate) 2.5 Mg/3 Ml (0.083 %) Vial.neb 2.5 MG INH Q6H PRN for WHEEZING, #50 EA 1 Refill Prov: MADDIE EL MD 06/02/22 Albuterol Sulfate (Ventolin Hfa) 90 Mcg Hfa.aer.ad 2 PUFF INH Q6H PRN for SHORTNESS OF BREATH, #1 UNIT 1 PUFF = 90 MCG Prov: MADDIE EL MD 06/02/22 Prednisone (Prednisone) 50 Mg Tab 50 MG PO DAILY, #5 TAB Prov: MADDIE EL MD 06/02/22 Copy Copies To 1: CHANI MAGANA KATHRYN M MD Jun 02, 2022 04:32
[2022-06-02] MEDS ORDERED: LABETALOL HCL 20 MG/4 ML VIAL IV ONE (04:45)
[2022-06-02] MEDS ORDERED: RT-ALBUTEROL/IPRATROPIUM 3 ML (DUONEB) VIAL INH ONE (04:45)
[2022-06-02] MEDS ORDERED: methylPREDNISolone 125 MG (Solu-MEDROL) VIAL IVP ONE (04:45)
[2022-06-02] MEDS ORDERED: RT-ALBUTEROL SULF 2.5 MG/3 ML PRE-MIX VIAL INH ONE (04:45)
[2022-06-02 05:36] LABS: BASOPHILS # (AUTO) 0.1 10^3/uL (0.0-0.1); BASOPHILS % (AUTO) 1 % (0-10); EOSINOPHILS # (AUTO) 0.3 10^3/uL (0.0-0.3); EOSINOPHILS % (AUTO) 3 % (0-10); HEMATOCRIT 49 % (40-54); HEMOGLOBIN 17.3 g/dL (13.3-17.7); LYMPHOCYTES # (AUTO) 1.8 10^3/uL (1.0-4.0); LYMPHOCYTES % (AUTO) 16 % (12-44); MEAN CORPUSCULAR HEMOGLOBIN 32 pg (25-34); MEAN CORPUSCULAR HGB CONC 35 g/dL (32-36); MEAN CORPUSCULAR VOLUME 90 fL (80-99); MEAN PLATELET VOLUME 10.2 fL (9.0-12.2); MONOCYTES # (AUTO) 0.7 10^3/uL (0.0-1.0); MONOCYTES % (AUTO) 6 % (0-12); NEUTROPHILS # (AUTO) 8.2 10^3/uL (1.8-7.8); NEUTROPHILS % (AUTO) 75 % (42-75); PLATELET COUNT 207 10^3/uL (130-400)
[2022-06-02 05:48] LABS: CALCIUM 9.7 MG/DL (8.5-10.1); CREATININE SERUM 0.82 MG/DL (0.60-1.30); POTASSIUM 3.7 MMOL/L (3.6-5.0)
[2022-06-02] MEDS ORDERED: ALBU2.5V4 INH (06:09)
[2022-06-02] MEDS ORDERED: ALBU8.5H6 INH (06:09)
[2022-06-02] MEDS ORDERED: AZIT250T12 PO (06:09)
[2022-06-02] MEDS ORDERED: PRD50T PO (06:09)
--- NOTE | 2022-06-02 06:09 | Diagnostic Imaging Report ---
INDICATION: Shortness of breath. TECHNIQUE: Single view chest 5:29 AM. CORRELATION STUDY: None FINDINGS: The heart size, mediastinal configuration and pulmonary vascularity are within normal limits. The lungs are clear with no consolidating infiltrate. There is no significant effusion or pneumothorax. IMPRESSION: 1. Negative appearing portable chest. Dictated by: Dictated on workstation # [id number]
[2022-06-02 06:33] VITALS: BP 135/93
== END 2022-06-02 06:34 | disposition home or self-care (01) ==
LOC: EDUNIT# 04:20 → ER 04:22
DX: J44.1 Chronic obstructive pulmonary disease with (acute) exacerbation (principal); I10 Essential (primary) hypertension; F17.210 Nicotine dependence, cigarettes, uncomplicated
CPT/HCPCS: 36415; 71045; 80048; 84145; 85025; 94640; 94644